=== PATIENT | male | born 1950 | race Caucasian/White ===

== ENCOUNTER 2021-01-26 14:15 | Emergency (ER) | payer MEDICARE, SELFPAY ==
[2021-01-26 14:17] VITALS: BP 144/89; PULSE 108; RESP 20; TEMP 36.3; O2SAT 96; BMI 33.5
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
[2021-01-26] MEDS: Lidocaine 1% /Epi 1:100 (20ml) 20 ML Vial INFILT (14:57)
[2021-01-26] MEDS: Diphth,Pertuss(Acell),Tet Vac 0.5 ML Vial IM (17:01)
[2021-01-26] MEDS: Cephalexin 250 MG Capsule 500 MG PO (17:03)
[2021-01-26 17:17] VITALS: PULSE 89; RESP 17; O2SAT 97
== END 2021-01-26 17:24 | disposition home or self-care (01) ==
PROVIDERS: Emergency Provider Emergency Medicine
DX: S01.01XA Laceration without foreign body of scalp, initial encounter (principal); W22.09XA Striking against other stationary object, initial encounter; I10 Essential (primary) hypertension; Z79.51 Long term (current) use of inhaled steroids; Z79.899 Other long term (current) drug therapy; Z87.891 Personal history of nicotine dependence; Z23 Encounter for immunization
CPT/HCPCS: 12004; 90471; 90715; 99283

== ENCOUNTER → 2024-08-01 | Outpatient (CLI) | payer MEDICARE, SELFPAY | END | disposition home or self-care (01) | LOC: LABSPEC 12:33 | PROVIDERS: Referring Provider Physician Assistant; Visit Provider Physician Assistant | DX: S81.802A Unspecified open wound, left lower leg, initial encounter (principal); X58.XXXA Exposure to other specified factors, initial encounter | CPT/HCPCS: 87070; 87075; 87205 ==

== ENCOUNTER 2024-08-18 14:39 | Emergency (ER) | payer MEDICARE, SELFPAY ==
[2024-08-18] VITALS (7 sets, daily range): BP systolic 150–172; BP diastolic 72–110; PULSE 60–87; RESP 12–18; TEMP 36.4–36.6; O2SAT 93–98; BMI 38.6
--- NOTE | 2024-08-18 14:51 | EKG12_ITS ---
Test Reason : CP Blood Pressure : */* mmHG Vent. Rate : 58 BPM Atrial Rate : 58 BPM P-R Int : 204 ms QRS Dur : 84 ms QT Int : 398 ms P-R-T Axes : 80 -22 2 degrees QTcB Int : 390 ms Sinus bradycardia Nonspecific ST abnormality Abnormal ECG When compared with ECG of 07-Sep-2017 11:20, No significant change was found Confirmed by SERGEI GREENE, LIZBETH ([id number]), editor map HEVER URBINA ([id number]) on 08/22/2024 8:38:25 AM Referred By: Confirmed By: LIZBETH MAI MD
--- NOTE | 2024-08-18 14:54 | EX.ED.DYSGE1 ---
HPI <KIMBERLEY Denise - Last Filed: 08/18/24 17:45> History of Present Illness Chief Complaint: Chest Pain Narrative Narrative: Patient is a 74-year-old male with history of COPD, history hypertension, hyperlipidemia who presents to the emergency department with complaints of chest pressure, shortness of breath. Patient states he was using a log splitter, and then he felt pressure in his upper chest felt like blood was being pushed from his chest into his head. Pay states he also felt short of breath. He does have history of lower leg edema that is been ongoing. He has not seen a residential air sealing technician. Here for evaluation. Patient denies any specific pain that raise to his jaw or upper or lower extremities. PFS <KIMBERLEY Denise - Last Filed: 08/18/24 17:45> [facility] Medical History (Updated 08/18/24 @ 17:45 by KIMBERLEY Denise) Cellulitis of left lower extremity Leg wound, left HTN (hypertension) Home Medications ?Medication ?Instructions ?Recorded ?Last Taken ?Type metoprolol tartrate 25 mg tablet 12.5 mg PO BID 08/06/16 08/12/16 08:30 History simvastatin 20 mg tablet 20 mg PO QPM 08/06/16 Unknown History albuterol sulfate 90 mcg/actuation 2 puff inhalation Q4H PRN PRN 09/07/17 Unknown Rx aerosol inhaler Shortness of breath/wheezing ##1 budesonide-formoterol HFA 160 2 puff inhalation BID 01/26/21 Unknown History mcg-4.5 mcg/actuation aerosol inhaler (Symbicort) lisinopril 20 1 tab PO DAILY 01/26/21 Unknown History mg-hydrochlorothiazide 12.5 mg tablet brimonidine 0.2 %-timolol 0.5 % 1 drp RIGHT EYE BID 08/18/24 Unknown History eye drops latanoprost 0.005 % eye drops 1 drp RIGHT EYE QHS 08/18/24 Unknown History ofloxacin 0.3 % eye drops 1 drp RIGHT EYE 4X/DAY 08/18/24 Unknown History prednisolone acetate 1 % eye 1 drp RIGHT EYE 4X/DAY 08/18/24 Unknown History drops,suspension Allergy/AdvReac Type Severity Reaction Status Date / Time atorvastatin (From Lipitor) AdvReac Pain in Verified 08/18/24 14:43 joints Family History Father Heart disease Surgical History History of total left hip arthroplasty (~2016) History of lumbar fusion Social History Smoking Status: Former smoker ROS <KIMBERLEY Denise - Last Filed: 08/18/24 17:45> ROS ED ROS Narrative Constitutional: Negative for fever, chills, weight loss, weakness Eyes: Negative for vision loss, vision change, double vision ENT: Negative for any sore throat, ear pain, congestion Cardiovascular: Negative for any palpitations. Positive chest pain, tightness Respiratory: Negative for any cough, sputum production, hemoptysis. Positive for dyspnea, dyspnea on exertion, orthopnea Gastrointestinal: Negative for any abdominal pain, nausea, vomiting, diarrhea, constipation, blood in stool, blood in vomit : Negative for any urinary frequency, dysuria, retention, blood in urine Muscle skeletal: Negative for any neck pain, back pain Neurological: Negative for any headache, syncope, dizziness Skin: Negative for any rashes, itching, abrasions, lacerations Psychiatric: Negative for any depression, anxiety, stress, suicidal ideation, homicidal ideation Hematologic: Negative for any excessive bruising, easy bleeding EXAM <KIMBERLEY Denise - Last Filed: 08/18/24 17:45> Physical Exam Narrative Exam Narrative: Vital signs reviewed. HEET: Head normocephalic atraumatic, TMs clear bilaterally. Posterior pharynx is clear, moist mucous membranes. Nares clear bilaterally. Neck: Supple with no lymphadenopathy or tenderness. No signs of meningismus. Cardiac: Regular rate and rhythm no murmurs gallops or rubs, equal peripheral pulses bilaterally. Respiratory: Diminished lung sounds in the bases, left worse than the right. Some expiratory wheeze to the left mid lobe. No chest tenderness. Abdomen: Soft, nontender, nondistended. No abdominal bruit or pulsatile masses. No hepatosplenomegaly Extremities: No peripheral edema, no signs of gross trauma or deformity. Active full range of motion of all extremities. Neuro: Cranial nerves II through XII intact, no focal neurological deficits. Skin: Clean dry and intact with no rash, purpura, petechiae, vesicles or pustules. Backs/flank: No CVA tenderness, no midline spinal tenderness, no deformity. Psych: Normal mood and affect. No SI, HI or acute psychosis. Const Vital Signs: 08/18/24 14:41 08/18/24 14:46 08/18/24 14:54 Temperature 98 F Temperature Source Oral Pulse Rate 60 Respiratory Rate 18 Respiratory Effort Short of Breath Respiratory Pattern Blood Pressure 172/110 H Blood Pressure Mean 130 Pulse Ox 98 93 Oxygen Delivery Method Room Air Room Air 08/18/24 15:08 08/18/24 15:36 08/18/24 15:57 Temperature Temperature Source Pulse Rate 60 67 64 Respiratory Rate 16 16 12 Respiratory Effort Respiratory Pattern Normal Blood Pressure 168/87 H 167/92 H Blood Pressure Mean 114 117 Pulse Ox 98 97 Oxygen Delivery Method Room Air Room Air 08/18/24 17:00 08/18/24 17:45 Temperature 97.5 F L Temperature Source Pulse Rate 87 69 Respiratory Rate 16 15 Respiratory Effort Respiratory Pattern Blood Pressure 162/82 H 150/72 H Blood Pressure Mean 108 98 Pulse Ox 97 95 Oxygen Delivery Method Room Air Positive well nourished, well developed and obese General Appearance ED: well developed Nutritional Appearance: obese <Dr. Tad Escobar, DO - Last Filed: 08/18/24 18:34> Physical Exam Const Vital Signs: 08/18/24 14:41 08/18/24 14:46 08/18/24 14:54 Temperature 98 F Temperature Source Oral Pulse Rate 60 Respiratory Rate 18 Respiratory Effort Short of Breath Respiratory Pattern Blood Pressure 172/110 H Blood Pressure Mean 130 Pulse Ox 98 93 Oxygen Delivery Method Room Air Room Air 08/18/24 15:08 08/18/24 15:36 08/18/24 15:57 Temperature Temperature Source Pulse Rate 60 67 64 Respiratory Rate 16 16 12 Respiratory Effort Respiratory Pattern Normal Blood Pressure 168/87 H 167/92 H Blood Pressure Mean 114 117 Pulse Ox 98 97 Oxygen Delivery Method Room Air Room Air 08/18/24 17:00 08/18/24 17:45 Temperature 97.5 F L Temperature Source Pulse Rate 87 69 Respiratory Rate 16 15 Respiratory Effort Respiratory Pattern Blood Pressure 162/82 H 150/72 H Blood Pressure Mean 108 98 Pulse Ox 97 95 Oxygen Delivery Method Room Air MDM <Mateusz Beckwith NP-C - Last Filed: 08/18/24 17:45> [facility] Narrative Medical decision making narrative: Vital signs reviewed. HEET: Head normocephalic atraumatic, TMs clear bilaterally. Posterior pharynx is clear, moist mucous membranes. Nares clear bilaterally. Neck: Supple with no lymphadenopathy or tenderness. No signs of meningismus. Cardiac: Regular rate and rhythm no murmurs gallops or rubs, equal peripheral pulses bilaterally. Respiratory: Diminished lung sounds to lower lobes, slight expiratory wheeze. No chest tenderness. Abdomen: Soft, nontender, nondistended. No abdominal bruit or pulsatile masses. No hepatosplenomegaly Extremities: +2 pitting edema no signs of gross trauma or deformity. Active full range of motion of all extremities. Neuro: Cranial nerves II through XII intact, no focal neurological deficits. Skin: Clean dry and intact with no rash, purpura, petechiae, vesicles or pustules. Backs/flank: No CVA tenderness, no midline spinal tenderness, no deformity. Psych: Normal mood and affect. No SI, HI or acute psychosis. Lab Data Labs: Laboratory Results - last 24 hr 08/18/24 08/18/24 14:51 17:02 WBC 10.0 RBC 4.92 Hgb 14.8 Hct 44.2 MCV 89.8 MCH 30.1 MCHC 33.5 RDW Std Deviation 41.4 RDW Coeff of Donna 12.5 Plt Count 247 MPV 9.3 Immature Gran % (Auto) 0.700 Neut % (Auto) 71.4 H Lymph % (Auto) 18.2 L [place] % (Auto) 8.1 Eos % (Auto) 1.1 Baso % (Auto) 0.5 Absolute Neuts (auto) 7.1 Absolute Lymphs (auto) 1.81 Nucleated RBC % 0 Sodium 131 L Potassium 3.9 Chloride 99 Carbon Dioxide 27.0 Anion Gap 5 BUN 17 Creatinine 0.72 Estim Creat Clear Calc 96.87 Est GFR (MDRD) Af Amer 136 Est GFR (MDRD) Non-Af 112 BUN/Creatinine Ratio 23.5 H Glucose 95 Calcium 9.0 Troponin I High Sens 16 18 B-Natriuretic Peptide 84.0 Radiography Diagnostic Testing: Clinical Impression(s) from Imaging Studies Chest X-Ray 08/18/24 15:00 IMPRESSION: No radiographic evidence of acute cardiopulmonary disease. Electronically Signed: Guicho Jaime MD at 17:05 EST , EKG Sinus bradycardia: Attestation: I personally reviewed and interpreted this EKG as follows: Comments: Sinus bradycardia, rate of 58 bpm, MT interval 204 ms, QRS duration 94 ms, QRS elevation, no acute infarct no acute STEMI Treatment and Re-Evaluation :: Differential diagnosis includes however is not limited to: ACS, [place] unstable angina, CHF exacerbation, COPD exacerbation unstable angina, PE Patient appears generally well, vital signs are stable, patient is nontoxic-appearing. Slightly hypertensive, patient presents to the emergency department for complaints of upper chest pressure, feeling of blood rushing from his chest to his head. This is worse with movement. Patient is EKG was unremarkable. Patient will receive a full cardiac workup including breathing treatments, two-view chest x-ray. Patient be given 4 baby aspirin. All radiologic examinations were read, reviewed by the emergency department attending. From these reads, a plan of care will be put in place. Patient CBC was unremarkable, patient's chemistry shows normal 131, creatinine within normal limits. Patient's BNP was 84 which is negative. Troponin was negative at 16. When patient walks to the bathroom, he remains about 93%. Currently waiting for second troponin. Second troponin was negative. Patient again feels much better, he is asymptomatic. I did talk to the patient regarding admission to the hospital. He states that he would prefer to have this followed up outpatient. Patient will follow-up with cardiology here. The patient was made aware, that if the pain gets worse, patient is having shortness of breath, the patient needs to return to the emerged department. He is happy the plan of care and stable for discharge. ED attending note: I evaluated the patient in conjunction with the ROLO. I agree with his/her statements and above findings. I have personally performed a face to face assessment of the patient and have reviewed the ROLO Note. I performed a substantive portion of the visit including all aspects of the following. I personally saw the patient performed chart review, physical exam, reviewed labs, imaging (if obtained), and formulated a treatment and management plan. 74-year-old male history of COPD presents with chest pain/chest pressure with sitting up. No fever. No cough. Slight edema noted. Rales noted on exam. Patient did appear slightly volume overloaded. The patient denies recent surgery in the last 4 weeks or immobilization in the last 3 days, denies previous diagnosis of DVT or PE, hemoptysis, unilateral leg swelling or malignancy with treatment the last 6 months or palliative. No estrogen use noted. Lungs with rales but no wheezing. No increased work of breathing, no conversational dyspnea. Noted 1-2+ pitting edema bilateral lower extremities. No calf tenderness. Differential includes COPD exacerbation, CHF, ACS, arrhythmia, anemia, electrolyte disturbance, pneumonia. Chest x-ray was read and reviewed personally by myself showed signs of interstitial edema consistent with possible CHF exacerbation. EKG showed sinus bradycardia, first-degree AV block, MT interval 204, QTc interval 390, left axis deviation, no STEMI, no signs of pericarditis. No signs of right heart strain. Initial troponin negative. Patient ambulated with pulse ox of 93%. Awaiting additional labs, delta troponin At this time will undergo shared decision making as to if the patient feels comfortable with discharge with oral diuretics versus admission for IV diuretics given it appears that his initial history, clinical exam and initial partial lab and imaging evaluation are most consistent with CHF. This note was generated with Xendo dictation software. It may contain incorrect words, spelling, and punctuation that were not noted in review of the chart prior to signing. <Dr. Tad Escobar, DO - Last Filed: 08/18/24 18:34> [facility] Lab Data Labs: Laboratory Results - last 24 hr 08/18/24 08/18/24 14:51 17:02 WBC 10.0 RBC 4.92 Hgb 14.8 Hct 44.2 MCV 89.8 MCH 30.1 MCHC 33.5 RDW Std Deviation 41.4 RDW Coeff of Donna 12.5 Plt Count 247 MPV 9.3 Immature Gran % (Auto) 0.700 Neut % (Auto) 71.4 H Lymph % (Auto) 18.2 L [place] % (Auto) 8.1 Eos % (Auto) 1.1 Baso % (Auto) 0.5 Absolute Neuts (auto) 7.1 Absolute Lymphs (auto) 1.81 Nucleated RBC % 0 Sodium 131 L Potassium 3.9 Chloride 99 Carbon Dioxide 27.0 Anion Gap 5 BUN 17 Creatinine 0.72 Estim Creat Clear Calc 96.87 Est GFR (MDRD) Af Amer 136 Est GFR (MDRD) Non-Af 112 BUN/Creatinine Ratio 23.5 H Glucose 95 Calcium 9.0 Troponin I High Sens 16 18 B-Natriuretic Peptide 84.0 Radiography Diagnostic Testing: Clinical Impression(s) from Imaging Studies Chest X-Ray 08/18/24 15:00 IMPRESSION: No radiographic evidence of acute cardiopulmonary disease. Electronically Signed: Guicho Jaime MD at 17:05 EST , Treatment and Re-Evaluation :: Differential diagnosis includes however is not limited to: ACS, [place] unstable angina, CHF exacerbation, COPD exacerbation unstable angina, PE Patient appears generally well, vital signs are stable, patient is nontoxic-appearing. Slightly hypertensive, patient presents to the emergency department for complaints of upper chest pressure, feeling of blood rushing from his chest to his head. This is worse with movement. Patient is EKG was unremarkable. Patient will receive a full cardiac workup including breathing treatments, two-view chest x-ray. Patient be given 4 baby aspirin. All radiologic examinations were read, reviewed by the emergency department attending. From these reads, a plan of care will be put in place. Patient CBC was unremarkable, patient's chemistry shows normal 131, creatinine within normal limits. Patient's BNP was 84 which is negative. Troponin was negative at 16. When patient walks to the bathroom, he remains about 93%. Currently waiting for second troponin. Second troponin was negative. Patient again feels much better, he is asymptomatic. I did talk to the patient regarding admission to the hospital. He states that he would prefer to have this followed up outpatient. The patient was alert and oriented with capacity to make his own medical decisions. Patient will follow-up with cardiology here. The patient was made aware, that if the pain gets worse, patient is having shortness of breath, the patient needs to return to the emerged department. He is happy the plan of care and stable for discharge. ED attending note: I evaluated the patient in conjunction with the ROLO. I agree with his/her statements and above findings. I have personally performed a face to face assessment of the patient and have reviewed the ROLO Note. I performed a substantive portion of the visit including all aspects of the following. I personally saw the patient performed chart review, physical exam, reviewed labs, imaging (if obtained), and formulated a treatment and management plan. 74-year-old male history of COPD presents with chest pain/chest pressure with sitting up. No fever. No cough. Slight edema noted. Rales noted on exam. Patient did appear slightly volume overloaded. The patient denies recent surgery in the last 4 weeks or immobilization in the last 3 days, denies previous diagnosis of DVT or PE, hemoptysis, unilateral leg swelling or malignancy with treatment the last 6 months or palliative. No estrogen use noted. Lungs with rales but no wheezing. No increased work of breathing, no conversational dyspnea. Noted 1-2+ pitting edema bilateral lower extremities. No calf tenderness. Differential includes COPD exacerbation, CHF, ACS, arrhythmia, anemia, electrolyte disturbance, pneumonia. Chest x-ray was read and reviewed personally by myself showed signs of interstitial edema consistent with possible CHF exacerbation. EKG showed sinus bradycardia, first-degree AV block, MT interval 204, QTc interval 390, left axis deviation, no STEMI, no signs of pericarditis. No signs of right heart strain. Initial troponin negative. Patient ambulated with pulse ox of 93%. Awaiting additional labs, delta troponin. Dispo pending labs. This note was generated with Xendo dictation software. It may contain incorrect words, spelling, and punctuation that were not noted in review of the chart prior to signing. Discharge Plan Triage Chief Complaint: Chest Pain ED Midlevel Provider: Mateusz Beckwith ED Provider: Tad Escobar Dx/Rx/DC Orders Clinical Impression: Chest pressure Instructions: ED Chest Pain, Uncertain Cause Prescriptions: No Action simvastatin 20 mg Tablet 20 mg PO QPM metoprolol tartrate 25 MG tablet 12.5 mg PO BID albuterol sulfate 1 INHALER inhaler 2 puff INHALATION Q4H PRN PRN (Reason: Shortness of breath/wheezing) Qty: 1 0RF lisinopril-hydrochlorothiazide 20-12.5 mg Tablet 1 tab PO DAILY budesonide-formoterol [Symbicort] 160-4.5 mcg/actuation Hfa Aerosol Inhaler 2 puff INHALATION BID latanoprost 0.005 % drops 1 drp RIGHT EYE QHS ofloxacin 0.3 % drops 1 drp RIGHT EYE 4X/DAY prednisolone acetate 1 % drops,suspension 1 drp RIGHT EYE 4X/DAY brimonidine-timolol 0.2-0.5 % drops 1 drp RIGHT EYE BID Primary Care Provider: [facility] Referrals: Edwar Velarde MD [Med Staff - Active Staff] - [facility] [Primary [facility] Provider[facility] - Activity Restrictions/Additional Instructions: You are being discharged because you are going to follow-up outpatient to have a stress test and echocardiogram completed. I have given you a residential air sealing technician follow-up. If you continue to have chest pain or have another episode with diaphoresis, worsening shortness of breath, you need to return back to the emergency department. Print Language: Faroese Disposition Disposition: Home, Self Care Discharge Date/Time: 08/18/24 17:50
[2024-08-18] MEDS: Aspirin 81 MG TAB.CHEW 324 MG PO (14:56)
--- NOTE | 2024-08-18 15:00 | RAD_ITS ---
EXAM: XR CHEST, 2 VIEWS CLINICAL INDICATION: chest pain TECHNIQUE: Frontal and lateral views of the chest. COMPARISON: 09/07/2017 FINDINGS: LUNGS AND PLEURAL SPACES: Unremarkable. No consolidation or edema. No pneumothorax. No effusion. HEART: Unremarkable. Cardiac silhouette not enlarged. MEDIASTINUM: Central airways and mediastinal contour are unremarkable. BONES/JOINTS: Unremarkable. No acute fracture. SOFT TISSUES: Unremarkable. RAD/Chest PA and Lateral IMPRESSION: No radiographic evidence of acute cardiopulmonary disease. Electronically Signed: Guicho Jaime MD at 17:05 EST ,
[2024-08-18 15:08] LABS: Absolute Lymphocyte Count 1.81 X10^3/uL (0.83-4.51); Absolute Neutrophil Count 7.1 X10^3/uL (2.0-7.7); Basophil# 0.05 X10^3/uL; Basophil% 0.5 % (0-1); Eosinophil# 0.11 X10^3/uL; Eosinophils% 1.1 % (0-5); Hematocrit 44.2 % (40-54); Hemoglobin 14.8 g/dL (13.0-16.5); Lymphocyte # 1.81 X10^3/ul (0.83-4.51); Lymphocyte % 18.2 % (19-41); Mean Corp Hgb Conc 33.5 g/dL (32-36); Mean Corpuscular Hgb 30.1 pg (27.0-32.0); Mean Corpuscular Volume 89.8 fL (80-94); Mean Platelet Vol. 9.3 fl (6.2-12.0); Monocyte# 0.81 X10^3/uL; Monocyte% 8.1 % (0-10); NRBC Flagged by Analyzer 0 % (0-5); Neutrophil % 71.4 % (47-70); Platelet Count 247 K/mm3 (150-450); RBC Distribution Width CV 12.5 % (11.6-14.6); RBC Distribution Width SD 41.4 fl (35.1-43.9); Red Blood Count 4.92 M/mm3 (4.6-6.2)
[2024-08-18] MEDS: Albuterol 2.5 MG/3 ML VIAL.NEB. INHALATION (15:08)
[2024-08-18] MEDS: Ipratropium/Albuterol Sulfate 3 ML AMPUL.NEB INHALATION (15:08)
[2024-08-18 15:23] LABS: Anion Gap 5 (5-15); BUN 17 mg/dL (7-18); BUN/Creat Ratio 23.5 RATIO (10-20); Chloride 99 mmol/L (98-107); Creatinine, Serum 0.72 mg/dL (0.70-1.30); EST Glomerular Filtration Rate 112 mL/min (>60); Est Glom Filt Rate - Afr Amer 136 mL/min (>60); Estimated Creatinine Clearance 96.87 ml/min; Glucose 95 mg/dL (74-106); Potassium 3.9 mmol/L (3.5-5.1); Sodium Level 131 mmol/L (136-145); Troponin-I HS (w/2H Reflex) 16 pg/mL (3.0-78.0)
[2024-08-18 16:55] LABS: Reflex Troponin-HS? (from REC) Y
[2024-08-18 17:34] LABS: Troponin-I HS 18 pg/mL (3.0-78.0)
== END 2024-08-18 17:50 | disposition home or self-care (01) ==
PROVIDERS: Nurse Practitioner; Emergency Provider Emergency Medicine; Visit Provider Emergency Medicine
DX: R07.89 Other chest pain (principal); J44.9 Chronic obstructive pulmonary disease, unspecified; E78.5 Hyperlipidemia, unspecified; I10 Essential (primary) hypertension; Z87.891 Personal history of nicotine dependence; R06.02 Shortness of breath
CPT/HCPCS: 71046; 80048; 83880; 84484; 85025; 93005; 94640; 99284; A4216

== ENCOUNTER 2024-08-26 08:57 | Inpatient (IN) | payer MEDICARE, SELFPAY ==
[2024-08-26] VITALS (23 sets, daily range): BP systolic 122–171; BP diastolic 72–115; PULSE 59–101; RESP 13–20; TEMP 36.3–36.9; O2SAT 93–98; BMI 36.5; BMI 35.7
--- NOTE | 2024-08-26 09:58 | ED.VIS.DYS ---
HPI History of Present Illness Chief Complaint: Shortness of Breath Informant: patient Onset/Context/Timing Onset: Days Context: gradual Timing: Continuous Quality: Positive for Dyspnea on exertion Worsened by: Exertion Relieved by: Rest Associated Symptoms cough, white sputum and yellow sputum; Negative for rhinorrhea, post nasal drip, ear pain, fever, sore throat, chills, sweats, clear sputum or green sputum Narrative Narrative: Patient presents with shortness of breath that has been getting worse over the past 2 to 3 days. Patient states his breathing is worse with any exertion. Patient states he can only walk approximately 15 to 20 feet before he has to stop and catch his breath. Patient states his breathing does get better with rest. Patient admits to a cough with some white and yellow sputum. Patient admits to some pressure over his upper chest and into his neck. Patient denies any fevers or chills. Patient denies any nausea or vomiting. Patient denies any diaphoresis. Patient denies any PE risk factors. PE Risk Factors: Negative for Cancer, OCP + Smoking + > 35, Prior DVT or PE, Recent immobilization, Recent surgery or Recent travel [facility] Medical History (Updated 08/26/24 @ 15:[address] Jorden Banegas, DO) Alcohol abuse Former smoker COPD (chronic obstructive pulmonary disease) Congestive heart failure (CHF) Cellulitis of left lower extremity Leg wound, left HTN (hypertension) Home Medications ?Medication ?Instructions ?Recorded ?Last Taken ?Type metoprolol tartrate 25 mg tablet 12.5 mg PO BID 08/06/16 08/12/16 08:30 History simvastatin 20 mg tablet 20 mg PO QPM 08/06/16 Unknown History albuterol sulfate 90 mcg/actuation 2 puff inhalation Q4H PRN PRN 09/07/17 Unknown Rx aerosol inhaler Shortness of breath/wheezing ##1 budesonide-formoterol HFA 160 2 puff inhalation BID 01/26/21 Unknown History mcg-4.5 mcg/actuation aerosol inhaler (Symbicort) lisinopril 20 1 tab PO DAILY 01/26/21 Unknown History mg-hydrochlorothiazide 12.5 mg tablet brimonidine 0.2 %-timolol 0.5 % 1 drp RIGHT EYE BID 08/18/24 Unknown History eye drops latanoprost 0.005 % eye drops 1 drp RIGHT EYE QHS 08/18/24 Unknown History prednisolone acetate 1 % eye 1 drp RIGHT EYE 4X/DAY 08/18/24 Unknown History drops,suspension Allergy/AdvReac Type Severity Reaction Status Date / Time atorvastatin (From Lipitor) AdvReac Pain in Verified 08/26/24 09:13 joints Family History Father Heart disease Surgical History History of total left hip arthroplasty (~2016) History of lumbar fusion Social History Smoking Status: Former smoker ROS ROS ED Constitutional Constitutional ED: Denies chills or fever(s) Eyes Eyes: Denies blurry vision or change in vision ENT ENT ED: Denies rhinorrhea or sore throat Cardiovascular Cardiovascular: Reports chest pain; Denies palpitations Respiratory/Chest Respiratory/Chest: Reports cough and dyspnea Gastrointestinal Gastrointestinal: Denies nausea or vomiting Genitourinary Genitourinary ED: Reports urinary frequency; Denies dysuria or hematuria Musculoskeletal Musculoskeletal: Reports neck pain; Denies back pain Integumentary Denies abscess or rash Neurologic Neurologic: Denies headache(s) or weakness Allergic/Immunologic Allergic/Immunologic ED: Denies mouth swelling or urticaria EXAM Physical Exam Const Vital Signs: 08/26/24 08:58 08/26/24 09:01 08/26/24 09:11 Temperature 98.1 F 98.2 F Temperature Source Temporal Oral Pulse Rate 63 62 Respiratory Rate 18 20 H Respiratory Effort Short of Breath Respiratory Depth Shallow Respiratory Pattern Normal Blood Pressure 164/89 H 153/89 H Blood Pressure Mean 114 110 Pulse Ox 96 96 Oxygen Delivery Method Room Air Room Air Room Air 08/26/24 09:57 08/26/24 10:00 08/26/24 10:01 Temperature 97.6 F L Temperature Source Oral Pulse Rate 61 59 L 59 L Respiratory Rate 17 16 16 Respiratory Effort Respiratory Depth Respiratory Pattern Blood Pressure 122/72 H 122/72 H 122/72 H Blood Pressure Mean 88 88 88 Pulse Ox 94 95 94 Oxygen Delivery Method Room Air Room Air Room Air 08/26/24 11:00 08/26/24 12:00 08/26/24 13:00 Temperature 98.5 F 98.4 F 98.5 F Temperature Source Oral Oral Oral Pulse Rate 66 70 75 Respiratory Rate 16 18 18 Respiratory Effort Respiratory Depth Respiratory Pattern Blood Pressure 132/88 H 139/90 H 159/90 H Blood Pressure Mean 102 106 113 Pulse Ox 96 96 96 Oxygen Delivery Method Room Air Room Air Room Air 08/26/24 14:00 Temperature 98 F Temperature Source Oral Pulse Rate 75 Respiratory Rate 16 Respiratory Effort Respiratory Depth Respiratory Pattern Blood Pressure 171/95 H Blood Pressure Mean 120 Pulse Ox 94 Oxygen Delivery Method Room Air Positive well nourished and well developed General Appearance ED: well developed and NAD HEENT Reports moist mucous membranes Neck supple and no JVD Resp normal respiratory effort Auscultation: diminished lung sounds diffuse Cardio regular rate and regular rhythm GI non-tender and non-distended Palpation: soft Extremity normal to inspection Extremity Narrative: There is trace edema of the lower extremities bilaterally. There is no tenderness. General Extremety ED: Yes edema; Negative for tenderness General Extremity: edema Neuro oriented x3, CN's II-XII intact bilaterally and no sensory deficits noted Alia Coma Scale: document GCS findings Spontaneous Obeys Commands Oriented 15 Sensorium / Orientation: alert Speech: speech normal Motor Exam: strength 5/5 throughout Psych mental status grossly normal MDM MDM MDM Narrative Medical decision making narrative: Differential diagnosis includes cardiac dysrhythmia, cardiac ischemia, pneumonia, pneumothorax, congestive heart failure, electrolyte abnormality, anemia, and anxiety. EKG will be obtained to assess for cardiac dysrhythmia and cardiac ischemia. Chest x-ray will be obtained to assess for congestive heart failure and pneumonia. CBC will be obtained to assess for leukocytosis and anemia. Basic metabolic profile will be obtained to assess for electrolyte abnormality and renal function. BNP will be obtained to assess for congestive heart failure. High-sensitivity troponin will be obtained to assess for cardiac ischemia. 2-hour repeat high-sensitivity troponin will be obtained to assess for ongoing cardiac ischemia. Lab Data Attestation: I reviewed the patient's lab results. Lab results narrative: CBC was reviewed. There is a mild leukocytosis of 14.8. The remainder is within normal limits. Basic metabolic profile was reviewed and was within normal limits. High-sensitivity troponin was reviewed and was normal at 19. BNP was reviewed and was normal at 92. 2-hour repeat high-sensitivity troponin was reviewed and was normal at 19. Urinalysis was reviewed. There is no evidence of urinary tract infection or hematuria. Labs: Laboratory Results - last 24 hr 08/26/24 08/26/24 08/26/24 09:05 09:57 12:22 WBC 14.8 H RBC 4.57 L Hgb 13.8 Hct 41.0 MCV 89.7 MCH 30.2 MCHC 33.7 RDW Std Deviation 41.9 RDW Coeff of Donna 12.8 Plt Count 221 MPV 9.0 Immature Gran % (Auto) 0.500 Neut % (Auto) 86.2 H Lymph % (Auto) 6.2 L [place] % (Auto) 6.4 Eos % (Auto) 0.5 Baso % (Auto) 0.2 Absolute Neuts (auto) 12.8 H Absolute Lymphs (auto) 0.91 Nucleated RBC % 0 Sodium 137 Potassium 3.6 Chloride 102 Carbon Dioxide 30.0 Anion Gap 5 BUN 17 Creatinine 0.65 L Estim Creat Clear Calc 93.98 Est GFR (MDRD) Af Amer 152 Est GFR (MDRD) Non-Af 126 BUN/Creatinine Ratio 26.0 H Glucose 115 H Calcium 9.0 Troponin I High Sens 19 19 B-Natriuretic Peptide 92.0 Urine Color Yellow Urine Clarity Clear Urine pH 6.0 Ur Specific [place] 1.010 Urine Protein Negative Urine Glucose (UA) Normal Urine Ketones Negative Urine Occult Blood Negative Urine Nitrite Negative Urine Bilirubin Negative Urine Urobilinogen Normal Ur Leukocyte Esterase Negative Urine RBC 0 SEEN Urine WBC 0 SEEN Ur Squamous Epith Cells 0 SEEN Urine Bacteria 0 SEEN Urine Mucus 0 SEEN Radiography Chest X-Ray - ED: 2 View, Read by ED Physician, Read by Radiologist and No Acute Disease Diagnostic Testing: Clinical Impression(s) from Imaging Studies Chest X-Ray 08/26/24 10:05 IMPRESSION: No radiographic evidence of acute cardiopulmonary disease. Electronically Signed: Jaxson James MD at 10:41 EST , PA and lateral chest x-ray was obtained. There are 2 views. On my independent interpretation, lung lazcano are clear. There is normal cardiac silhouette. Bony thorax is normal. There is no acute process noted. Radiologist also interpreted the x-ray and agrees. EKG Initial EKG: Attestation: I personally reviewed and interpreted this EKG as follows: Interpretation: Sinus Rhythm and Non-Specific ST Changes Comments: EKG was obtained. On my independent interpretation, it showed a normal sinus rhythm with a rate of 63. SC interval, QRS interval, and QTc intervals were all normal. [place] was normal. There are nonspecific ST-T wave changes. Prior EKG tracings: available for review Prior: Unchanged (08/18/2024) Management Discussion w/another healthcare provider: Hospitalist (Dr. Lopez) Additional Tests and Interventions Additional Tests or Interventions: CT of the chest will be obtained to assess for pulmonary embolism. Treatment and Re-Evaluation :: Patient was given a dose of Tylenol here. Patient was advised of his findings. Patient will be ambulated here in the emergency department pulse oximeter monitor. If the patient is able to maintain oxygen saturation above 90%, I feel patient can be discharged home. However, if his oxygen saturation drops below 90%, I feel the patient should be admitted to the hospital. Patient's oxygen saturation dropped to 86% while ambulating. Patient felt short of breath with this. Because of this, I recommended admission to the hospital. Case was discussed with the hospitalist. She will admit the patient to her service. Patient understood and was agreeable with the plan. All questions were answered. Patient understands and is agreeable with the plan. All questions were answered. Discharge Plan Triage Chief Complaint: Shortness of Breath ED Provider: Jorden Banegas Dx/Rx/DC Orders Clinical Impression: Dyspnea, Hypoxia Prescriptions: No Action simvastatin 20 mg Tablet 20 mg PO QPM metoprolol tartrate 25 MG tablet 12.5 mg PO BID albuterol sulfate 1 INHALER inhaler 2 puff INHALATION Q4H PRN PRN (Reason: Shortness of breath/wheezing) Qty: 1 0RF lisinopril-hydrochlorothiazide 20-12.5 mg Tablet 1 tab PO DAILY budesonide-formoterol [Symbicort] 160-4.5 mcg/actuation Hfa Aerosol Inhaler 2 puff INHALATION BID latanoprost 0.005 % drops 1 drp RIGHT EYE QHS prednisolone acetate 1 % drops,suspension 1 drp RIGHT EYE 4X/DAY brimonidine-timolol 0.2-0.5 % drops 1 drp RIGHT EYE BID [facility]errals: [facility] [Primary Care Provider] - 3-5 Days Print Language: Bhutanese Disposition Disposition: Acute Care Hospital [facility]
--- NOTE | 2024-08-26 10:05 | RAD_ITS ---
INDICATION: Dyspnea EXAMINATION/TECHNIQUE: X-RAY - XR Chest 2 Views COMPARISON: Prior study dated: 08/18/2024 FINDINGS: LINES/DEVICES: None. LUNGS: Mild atelectasis or focal elevation of the left hemidiaphragm. No new infiltrate is seen. No evidence of pleural effusions. MEDIASTINUM AND CARDIOVASCULAR STRUCTURES: Cardiac silhouette not enlarged. Central airways and mediastinal contour are unremarkable. BONES AND SOFT TISSUES: No demonstrated acute osseous changes. RAD/Chest PA and Lateral IMPRESSION: No radiographic evidence of acute cardiopulmonary disease. Electronically Signed: Jaxson James MD at 10:41 EST ,
--- NOTE | 2024-08-26 10:06 | EKG12_ITS ---
Test Reason : SOB/CP Blood Pressure : */* mmHG Vent. Rate : 63 BPM Atrial Rate : 63 BPM P-R Int : 190 ms QRS Dur : 74 ms QT Int : 366 ms P-R-T Axes : 57 -24 11 degrees QTcB Int : 374 ms Normal sinus rhythm with sinus arrhythmia Nonspecific ST abnormality Abnormal ECG Confirmed by SERGEI GREENE, LIZBETH ([id number]), art editor HEVER URBINA ([id number]) on 08/29/2024 6:44:03 AM Referred By: TIP Confirmed By: LIZBETH MAI MD
[2024-08-26 10:16] LABS: Bacteria 0 SEEN /hpf (None Seen); Mucous, Urine 0 SEEN /hpf (<or=2+); Red Blood Cells-Urine 0 SEEN /hpf (0-5); Squamous Epithelial Cells - UA 0 SEEN /hpf (0-5); White Blood Cells 0 SEEN /hpf (0-5)
[2024-08-26 10:18] LABS: Absolute Lymphocyte Count 0.91 X10^3/uL (0.83-4.51); Absolute Neutrophil Count 12.8 X10^3/uL (2.0-7.7); Basophil# 0.03 X10^3/uL; Basophil% 0.2 % (0-1); Eosinophil# 0.07 X10^3/uL; Eosinophils% 0.5 % (0-5); Hemoglobin 13.8 g/dL (13.0-16.5); Lymphocyte # 0.91 X10^3/ul (0.83-4.51); Lymphocyte % 6.2 % (19-41); Mean Corp Hgb Conc 33.7 g/dL (32-36); Mean Corpuscular Hgb 30.2 pg (27.0-32.0); Mean Corpuscular Volume 89.7 fL (80-94); Monocyte# 0.94 X10^3/uL; Monocyte% 6.4 % (0-10); NRBC Flagged by Analyzer 0 % (0-5); Neutrophil # 12.77 X10^3/uL (2.7-7.7); Neutrophil % 86.2 % (47-70); Platelet Count 221 K/mm3 (150-450); RBC Distribution Width CV 12.8 % (11.6-14.6); RBC Distribution Width SD 41.9 fl (35.1-43.9); Red Blood Count 4.57 M/mm3 (4.6-6.2); White Blood Count 14.8 K/mm3 (4.4-11.0)
[2024-08-26 10:19] LABS: Color, Urine Yellow (Yellow); Glucose, Dipstick Normal (Normal); Ketone-Dipstick Negative (Negative); Leukocyte Esterase-Dipstick Negative /ul (Negative); Nitrite-Dipstick Negative (Negative); Occult Blood-Urine Negative /ul (Negative); Protein-Dipstick Negative (Negative); Urine Bilirubin Dipstick Negative (Negative); Urine Clarity Clear (Clear); Urine Urobilinogen Normal (Normal)
[2024-08-26 10:36] LABS: Anion Gap 5 (5-15); BUN 17 mg/dL (7-18); Chloride 102 mmol/L (98-107); Creatinine, Serum 0.65 mg/dL (0.70-1.30); EST Glomerular Filtration Rate 126 mL/min (>60); Est Glom Filt Rate - Afr Amer 152 mL/min (>60); Estimated Creatinine Clearance 93.98 ml/min; Glucose 115 mg/dL (74-106); Potassium 3.6 mmol/L (3.5-5.1); Sodium Level 137 mmol/L (136-145); Troponin-I HS (w/2H Reflex) 19 pg/mL (3.0-78.0)
[2024-08-26 12:13] LABS: Reflex Troponin-HS? (from REC) Y
[2024-08-26] MEDS: Acetaminophen 500 MG Tablet 1000 MG PO (12:21)
[2024-08-26 12:53] LABS: Troponin-I HS 19 pg/mL (3.0-78.0)
--- NOTE | 2024-08-26 13:36 | CT_ITS ---
STUDY: CTA CHEST REASON FOR EXAM: Male, 74 years old. Dyspnea RADIATION DOSAGE (If Supplied By Facility): CTDIvol = ( 11.57 ) mGy, DLP = ( 464.83 ) mGycm TECHNIQUE: The examination was performed with the intravenous administration of IV 100mL Isovue-370. Post-processing of the angiographic images was performed, with multiplanar reformation and 3D reconstruction. Individualized dose optimization techniques were used for this CT. COMPARISON: None. FINDINGS: Normal enhancement of the main pulmonary artery and right and left pulmonary arteries. Normal enhancement of the bilateral peripheral pulmonary arteries. There is no demonstrated pulmonary embolism. There is atherosclerotic calcification of the aortic arch with tortuosity. There is no demonstrated aortic dissection. There are calcifications of the coronary arteries. There are calcified mediastinal lymph nodes. There are calcified left hilar lymph nodes. Normal visualized trachea and bronchi. The lungs are well expanded. There are bilateral groundglass opacities in the right middle and lower lobes. Normal pleura. Normal chest wall structures. There are degenerative changes of thoracic spine. There are multiple benign calcified liver and spleen granulomata. CT/CTA Chest W/WO Contrast IMPRESSION: CTA chest examination, without a demonstrated pulmonary embolism or arterial dissection. Mild right lower lung infiltrate. Electronically Signed: Sebastián Montejo MD at 15:23 [facility] ,
--- NOTE | 2024-08-26 14:44 | HP.PCM.HOS_ITS ---
HPI - General General Date of Admission: 08/26/24 Date of Service: 08/26/24 Chief Complaint: SOB, cough HPI Narrative SABRA PHAN, is a 74-year-old male with history of COPD and hypertension presented to [facility] ED 08/26/2024 with worsening shortness of breath on exertion and he is only able to walk 15 to 20 feet before he has to stop to catch his breath. Does have some cough with white-yellow sputum and gets occasional pressure over upper chest and neck. In the ED lab workup fairly unremarkable however when patient was ambulated his oxygen saturation dropped to 86%. CTA was ordered but given he was hypoxic and required admission either way hospitalist contacted for admission. At the time of evaluation CTA films reviewed but pending formal report. Patient evaluated with family member at bedside, for the past 3 days he has had increasing shortness of breath especially on exertion with some wheezing and cough with yellow and white sputum. Has had to use his rescue inhaler with increasing frequency on it does help but his shortness of breath has continued to worsen. Does report he also uses his Symbicort which is more helpful than his rescue inhaler. Patient does also have this upper chest and neck pressure, denies any problems swallowing, noted abdominal pain or nausea or vomiting. Does have a slight headache but he attributes this to the lytes. Also has a wound on his left iqbal from before Thanksgiving without purulent or significant drainage. Has a little bit of bilateral lower extremity swelling which is not necessarily new but has been persistent. No other new or acute complaints [facility] Medical History Cellulitis of left lower extremity Leg wound, left HTN (hypertension) Home Medications ?Medication ?Instructions ?Recorded ?Last Taken ?Type metoprolol tartrate 25 mg tablet 12.5 mg PO BID 08/06/16 08/12/16 08:30 History simvastatin 20 mg tablet 20 mg PO QPM 08/06/16 Unknown History albuterol sulfate 90 mcg/actuation 2 puff inhalation Q4H PRN PRN 09/07/17 Unknown Rx aerosol inhaler Shortness of breath/wheezing ##1 budesonide-formoterol HFA 160 2 puff inhalation BID 01/26/21 Unknown History mcg-4.5 mcg/actuation aerosol inhaler (Symbicort) lisinopril 20 1 tab PO DAILY 01/26/21 Unknown History mg-hydrochlorothiazide 12.5 mg tablet brimonidine 0.2 %-timolol 0.5 % 1 drp RIGHT EYE BID 08/18/24 Unknown History eye drops latanoprost 0.005 % eye drops 1 drp RIGHT EYE QHS 08/18/24 Unknown History ofloxacin 0.3 % eye drops 1 drp RIGHT EYE 4X/DAY 08/18/24 Unknown History prednisolone acetate 1 % eye 1 drp RIGHT EYE 4X/DAY 08/18/24 Unknown History drops,suspension Allergy/AdvReac Type Severity Reaction Status Date / Time atorvastatin (From Lipitor) AdvReac Pain in Verified 08/26/24 09:13 joints Family History Father Heart disease Surgical History History of total left hip arthroplasty (~2015) History of lumbar fusion Social History Smoking Status: Former smoker ROS ROS Narrative General: Denies fever/chills HENT: Slight headache, denies stuffy nose, denies sore throat EYES: Some chronic poor vision Resp: Increased shortness of breath and cough with yellow and white sputum Cardiac: Has some upper chest pain and neck GI: Denies abdominal pain, denies changes in bowel, denies nausea/vomiting : Denies changes in urination Extremity: Some lower extremity swelling bilaterally MSK: Denies weakness Neuro: Denies any numbness/tingling Heme: Denies any bleeding or bruising Skin: Left iqbal wound, new and without purulent drainage Psychiatric: No complaints voiced Vital Signs Vital Signs Vital Signs: 08/26/24 08:58 08/26/24 09:01 08/26/24 09:11 Temperature 98.1 F 98.2 F Temperature Source Temporal Oral Pulse Rate 63 62 Respiratory Rate 18 20 H Respiratory Effort Short of Breath Respiratory Depth Shallow Respiratory Pattern Normal Blood Pressure 164/89 H 153/89 H Blood Pressure Mean 114 110 Pulse Ox 96 96 Oxygen Delivery Method Room Air Room Air Room Air 08/26/24 09:57 08/26/24 10:00 08/26/24 10:01 Temperature 97.6 F L Temperature Source Oral Pulse Rate 61 59 L 59 L Respiratory Rate 17 16 16 Respiratory Effort Respiratory Depth Respiratory Pattern Blood Pressure 122/72 H 122/72 H 122/72 H Blood Pressure Mean 88 88 88 Pulse Ox 94 95 94 Oxygen Delivery Method Room Air Room Air Room Air 08/26/24 11:00 08/26/24 12:00 08/26/24 13:00 Temperature 98.5 F 98.4 F 98.5 F Temperature Source Oral Oral Oral Pulse Rate 66 70 75 Respiratory Rate 16 18 18 Respiratory Effort Respiratory Depth Respiratory Pattern Blood Pressure 132/88 H 139/90 H 159/90 H Blood Pressure Mean 102 106 113 Pulse Ox 96 96 96 Oxygen Delivery Method Room Air Room Air Room Air 08/26/24 14:00 Temperature 98 F Temperature Source Oral Pulse Rate 75 Respiratory Rate 16 Respiratory Effort Respiratory Depth Respiratory Pattern Blood Pressure 171/95 H Blood Pressure Mean 120 Pulse Ox 94 Oxygen Delivery Method Room Air Weight Weight: 108.862 kg Body Mass Index (BMI) 36.5 Physical Exam Narrative General: Alert, oriented, no apparent distress HEENT: Atraumatic, normocephalic Eyes: Anicteric, does have slight discordant gaze, has had 4 surgeries for detached retina Neck: Supple Respiratory: Diminished airflow, did have audible wheeze initially in the room Cardiovascular: Regular rate GI: Firm Extremities: 1+ bilateral lower extremity edema Musculoskeletal: Moving all extremities Neuro: No overt focal neurological deficits Skin: Patient with skin lesion on left anterior iqbal from scrape, not overtly cellulitic and without any purulent drainage Psych: Cooperative Results Lab / Micro Data 08/26/24 09:57 08/26/24 09:57 Labs: Laboratory Results - last 24 hr 08/26/24 09:05: Urine Color Yellow, Urine Clarity Clear, Urine pH 6.0, Ur Specific [place] 1.010, Urine Protein Negative, Urine Glucose (UA) Normal, Urine Ketones Negative, Urine Occult Blood Negative, Urine Nitrite Negative, Urine Bilirubin Negative, Urine Urobilinogen Normal, Ur Leukocyte Esterase Negative, Urine RBC 0 SEEN, Urine WBC 0 SEEN, Ur Squamous Epith Cells 0 SEEN, Urine Bacteria 0 SEEN, Urine Mucus 0 SEEN 08/26/24 09:57: WBC 14.8 H, RBC 4.57 L, Hgb 13.8, Hct 41.0, MCV 89.7, MCH 30.2, MCHC 33.7, RDW Std Deviation 41.9, RDW Coeff of Donna 12.8, Plt Count 221, MPV 9.0, Immature Gran % (Auto) 0.500, Neut % (Auto) 86.2 H, Lymph % (Auto) 6.2 L, [place] % (Auto) 6.4, Eos % (Auto) 0.5, Baso % (Auto) 0.2, Absolute Neuts (auto) 12.8 H, Absolute Lymphs (auto) 0.91, Nucleated RBC % 0, Sodium 137, Potassium 3.6, Chloride 102, Carbon Dioxide 30.0, Anion Gap 5, BUN 17, Creatinine 0.65 L, Estim Creat Clear Calc 93.98, Est GFR (MDRD) Af Amer 152, Est GFR (MDRD) Non-Af 126, BUN/Creatinine Ratio 26.0 H, Glucose 115 H, Calcium 9.0, Troponin I High Sens 19, B-Natriuretic Peptide 92.0 08/26/24 12:22: Troponin I High Sens 19 Imaging Radiology Impression Chest X-Ray 08/26/24 10:05 IMPRESSION: No radiographic evidence of acute cardiopulmonary disease. Electronically Signed: Jaxson James MD at 10:41 EST , Assessment & Plan Assessment/Plan (1) Dyspnea: PLAN: Plan #Hypoxia on exertion, suspect secondary to COPD exacerbation -Chest x-ray within normal limits -CTA still pending to rule out PE however patient has increased shortness of breath on exertion with cough productive for yellow and white sputum and has been using his rescue inhaler more frequently and does get some relief with this then has been having wheezing episodes as well -Admit to floor, continuous O2 monitoring COVID ordered, obtain respiratory panel, sputum culture if able -Will likely need ambulatory pulse ox prior to discharge -IV methylprednisone -Scheduled DuoNebs -Albuterol prn -Antibiotics: Azithromycin -Incentive spirometer -Mucinex #Hypertension -Continue home medications once med rec completed #LLE abrasion -Present since before -Had been treated earlier this month for cellulitis -Does not presently appear to be overtly cellulitic and has no active purulent drainage -If any increasing erythema can consider oral antibiotics for cellulitis -Local wound care #Alcohol use -Reportedly drinks 2-3 beers roughly every day -Beers are 12 ounces and 4 to 5% -Denies any history or current withdrawal symptoms -Low suspicion for alcohol withdrawal but will place on CIWA without coverage at this time so this can be monitored more closely -Can likely DC CIWA before discharge if patient remains completely asymptomatic #?dilated esophagus -Patient with some upper chest and neck pressure -Review of CTA looks like there may be some esophageal dilation which would likely explain the symptoms -Awaiting formal read-> may need formal GI consult for inpatient versus outpatient evaluation/management pending read #DVT ppx: Lovenox subcu Ashely Lopez MD Time spent in the patient's overall evaluation, decision-making process, review of diagnostic data, adjustment of management, discussion with other providers, nursing and ancillary staff involved in patient's care documentation, 57 Minutes Charges/Coding Visit Charges Inpatient E&M: 15401 Init Hosp L2
[2024-08-26] MEDS: Albuterol 2.5 MG/3 ML VIAL.NEB. INHALATION (16:16)
[2024-08-26] MEDS: Azithromycin 250 MG Tablet 500 MG PO (17:36)
--- NOTE | 2024-08-26 17:49 | PCM.HOSP.N ---
Hospitalist Note CT with mild right lower lobe infiltrate, will add Rocephin. No comment on the dilated esophagus however given that is visible on the CT and there is pain in the upper chest to neck will consult GI
--- NOTE | 2024-08-26 18:40 | CON.PCM.GI_ITS ---
HPI Consult Data Date of Consult: 08/26/24 HPI Narrative Reason for Consultation: chest pain HPI Narrative: SABRA PHAN, is a 74 M who presented to the ED with shortness of breath that has been getting worse over the past 2 to 3 days. Patient states his breathing is worse with any exertion. Patient states he can only walk approximately 15 to 20 feet before he has to stop and catch his breath. Patient states his breathing does get better with rest. Patient admits to a cough with some white and yellow sputum. Patient admits to some pressure over his upper chest and into his neck. Patient denies any fevers or chills. Patient denies any nausea or vomiting. Patient denies any diaphoresis. Patient denies any PE risk factors. CTA chest examination: without a demonstrated pulmonary embolism or arterial dissection. + Mild right lower lung infiltrate. Patient denies any dysphagia or odynophagia with liquids or solids. His weight has been stable. He denies any history of gastroesophageal reflux disease. He does not take any blood thinners. He has no previous history eosinophilic esophagitis. FORMERLY [facility] Medical History Alcohol abuse Former smoker COPD (chronic obstructive pulmonary disease) Congestive heart failure (CHF) Cellulitis of left lower extremity Leg wound, left HTN (hypertension) Home Medications ?Medication ?Instructions ?Recorded ?Last Taken ?Type metoprolol tartrate 25 mg tablet 12.5 mg PO BID 08/06/16 08/12/16 08:30 History simvastatin 20 mg tablet 20 mg PO QPM 08/06/16 Unknown History albuterol sulfate 90 mcg/actuation 2 puff inhalation Q4H PRN PRN 09/07/17 Unknown Rx aerosol inhaler Shortness of breath/wheezing ##1 budesonide-formoterol HFA 160 2 puff inhalation BID 01/26/21 Unknown History mcg-4.5 mcg/actuation aerosol inhaler (Symbicort) lisinopril 20 1 tab PO DAILY 01/26/21 Unknown History mg-hydrochlorothiazide 12.5 mg tablet brimonidine 0.2 %-timolol 0.5 % 1 drp RIGHT EYE BID 08/18/24 Unknown History eye drops latanoprost 0.005 % eye drops 1 drp RIGHT EYE QHS 08/18/24 Unknown History prednisolone acetate 1 % eye 1 drp RIGHT EYE 4X/DAY 08/18/24 Unknown History drops,suspension Allergy/AdvReac Type Severity Reaction Status Date / Time atorvastatin (From Lipitor) AdvReac Pain in Verified 08/26/24 09:13 joints Family History Father Heart disease Surgical History History of total left hip arthroplasty (~2016) History of lumbar fusion Social History Smoking Status: Former smoker ROS Constitutional Constitutional: Denies fatigue, fever(s), poor appetite, weight gain or weight loss Gastrointestinal Gastrointestinal: Denies belching, bloating, change in bowel habits, change in stool character, chewing difficulty, coffee ground emesis, constipation, cramping, diarrhea, dyspepsia, dysphagia, early satiety, excessive flatus, fecal incontinence, heartburn, hematemesis, hematochezia, hemorrhoids, loose stools, melena, nausea, odynophagia, rectal bleeding, tenesmus, vomiting or weight changes Physical Exam Const alert, oriented x3, no apparent distress and healthy appearing General Appearance: cooperative GI normal to inspection, nondistended, normoactive bowel sounds, soft to palpation, non-tender and non-distended Percussion: normal to percussion Rectal Exam: deferred Lab / Micro Data 08/26/24 09:57 08/26/24 09:57 Labs: Laboratory Results - last 24 hr 08/26/24 09:05: Urine Color Yellow, Urine Clarity Clear, Urine pH 6.0, Ur Specific [place] 1.010, Urine Protein Negative, Urine Glucose (UA) Normal, Urine Ketones Negative, Urine Occult Blood Negative, Urine Nitrite Negative, Urine Bilirubin Negative, Urine Urobilinogen Normal, Ur Leukocyte Esterase Negative, Urine RBC 0 SEEN, Urine WBC 0 SEEN, Ur Squamous Epith Cells 0 SEEN, Urine Bacteria 0 SEEN, Urine Mucus 0 SEEN 08/26/24 09:57: WBC 14.8 H, RBC 4.57 L, Hgb 13.8, Hct 41.0, MCV 89.7, MCH 30.2, MCHC 33.7, RDW Std Deviation 41.9, RDW Coeff of [place] 12.8, Plt Count 221, MPV 9.0, Immature Gran % (Auto) 0.500, Neut % (Auto) 86.2 H, Lymph % (Auto) 6.2 L, [place] % (Auto) 6.4, Eos % (Auto) 0.5, Baso % (Auto) 0.2, Absolute Neuts (auto) 12.8 H, Absolute Lymphs (auto) 0.91, Nucleated RBC % 0, Sodium 137, Potassium 3.6, Chloride 102, Carbon Dioxide 30.0, Anion Gap 5, BUN 17, Creatinine 0.65 L, Estim Creat Clear Calc 93.98, Est GFR (MDRD) Af Amer 152, Est GFR (MDRD) Non-Af 126, BUN/Creatinine Ratio 26.0 H, Glucose 115 H, Calcium 9.0, Troponin I High Sens 19, B-Natriuretic Peptide 92.0 08/26/24 12:22: Troponin I High Sens 19 Micro: Microbiology 08/26/24 16:08 Mucosa - Nasopharyngeal SARS-CoV-2, Influenza & RSV (PCR) - Final Imaging Radiology Impression Chest X-Ray 08/26/24 10:05 IMPRESSION: No radiographic evidence of acute cardiopulmonary disease. Electronically Signed: Jaxson James MD at 10:41 EST , Chest CTA 08/26/24 13:36 IMPRESSION: CTA chest examination, without a demonstrated pulmonary embolism or arterial dissection. Mild right lower lung infiltrate. Electronically Signed: Sebastián Montejo MD at 15:23 EST , Assessment & Plan Assessment/Plan (1) Chest pain: (2) Abnormal CT scan: (3) Dyspnea: PLAN: Plan 65-year-old with COPD exacerbation. There is no signs or symptoms of pulmonary malaise him. I was consulted for possible enlarged esophagus. I do not see grossly large esophagus which would make me think of possible esophageal stricture secondary to achalasia, pseudo achalasia, eosinophilic esophagitis, erosive esophagitis or pill induced esophagitis. He is not having any trouble swallowing at this time. I do not think his symptoms are from his upper GI tract. It sounds more positional and respiratory to me and regarding his symptoms. Charges/Coding Visit Charges Inpatient E&M: 46449 Init Hosp L3
[2024-08-26] MEDS: Ceftriaxone 2 GM in 0.9% Normal Saline (50mL MB+) 50 ML IV (18:52)
[2024-08-26] MEDS: Ipratropium/Albuterol Sulfate 3 ML AMPUL.NEB INHALATION ×2 (19:32→23:17)
[2024-08-26] MEDS: BRIMONIDINE 0.2% 5ML BOTTLE 1 DRP RIGHT EYE (19:59)
[2024-08-26] MEDS: prednisoLONE eye drops (5 mL) 1 DROP OPTH.BTL 1 DRP RIGHT EYE (19:59)
[2024-08-26] MEDS: Timolol 0.5% 5ML OPTH.BTL 1 DRP RIGHT EYE (20:02)
[2024-08-26] MEDS: Latanoprost 0.005% 1 Bottle 1 DRP RIGHT EYE (20:03)
[2024-08-26] MEDS: Metoprolol Tartrate 25 MG Tablet 12.5 MG PO (20:10)
[2024-08-26] MEDS: guaiFENesin 1,200 MG Tablet 1200 MG PO (20:11)
[2024-08-26] MEDS: Simvastatin 20 MG Tablet PO (20:11)
[2024-08-27] VITALS (10 sets, daily range): BP systolic 111–153; BP diastolic 69–99; PULSE 85–112; RESP 16–20; TEMP 36.4–36.9; O2SAT 92–96; BMI 35.9
[2024-08-27] MEDS: 0.9% Saline Lock 10 ML Syringe IV ×2 (06:20→21:46)
[2024-08-27 06:50] LABS: Absolute Lymphocyte Count 0.83 X10^3/uL (0.83-4.51); Absolute Neutrophil Count 16.4 X10^3/uL (2.0-7.7); Basophil# 0.03 X10^3/uL; Basophil% 0.2 % (0-1); Hematocrit 42.7 % (40-54); Hemoglobin 13.9 g/dL (13.0-16.5); Lymphocyte # 0.83 X10^3/ul (0.83-4.51); Lymphocyte % 4.5 % (19-41); Mean Corp Hgb Conc 32.6 g/dL (32-36); Mean Corpuscular Hgb 29.6 pg (27.0-32.0); Monocyte# 0.86 X10^3/uL; Monocyte% 4.7 % (0-10); NRBC Flagged by Analyzer 0 % (0-5); Neutrophil # 16.44 X10^3/uL (2.7-7.7); Neutrophil % 89.8 % (47-70); Platelet Count 225 K/mm3 (150-450); RBC Distribution Width SD 42.3 fl (35.1-43.9); Red Blood Count 4.69 M/mm3 (4.6-6.2); White Blood Count 18.3 K/mm3 (4.4-11.0)
[2024-08-27] MEDS: Ipratropium/Albuterol Sulfate 3 ML AMPUL.NEB INHALATION ×4 (06:52→22:39)
[2024-08-27 07:11] LABS: Anion Gap 3 (5-15); BUN 14 mg/dL (7-18); BUN/Creat Ratio 19.8 RATIO (10-20); Calcium,Total 9.3 mg/dL (8.5-10.1); Chloride 102 mmol/L (98-107); Creatinine, Serum 0.71 mg/dL (0.70-1.30); EST Glomerular Filtration Rate 115 mL/min (>60); Est Glom Filt Rate - Afr Amer 139 mL/min (>60); Glucose 132 mg/dL (74-106); Potassium 3.7 mmol/L (3.5-5.1); Sodium Level 136 mmol/L (136-145)
--- NOTE | 2024-08-27 08:17 | PCM.PN.HOSP ---
Reason for Visit Reason for Visit: Diagnoses Dyspnea, unspecified (08/26/24) Chest pain, unspecified (08/26/24) Abnormal findings on diagnostic imaging of other specified body structures (08/26/24) Objective Data Objective Data Vital Signs: Vital Signs Temp Pulse Resp BP Pulse Ox O2 Del Method 97.5 F L 85 18 111/69 96 Room Air 08/27/24 03:20 08/27/24 03:20 08/27/24 03:20 08/27/24 03:20 08/27/24 03:20 08/27/24 03:20 Oxygen Delivery Method Room Air Weight: 243 lb 6.245 oz Body Mass Index (BMI) 35.9 Intake & Output: Intake and Output for Last 24 Hours 08/25/24 08/26/24 08/27/24 23:59 23:59 23:59 Intake Total 290 / 290 120 / 120 Balance 290 / 290 120 / 120 Lab / Micro Data 08/27/24 05:37 08/27/24 05:37 Labs: Laboratory Results - last 24 hr 08/26/24 09:05: Urine Color Yellow, Urine Clarity Clear, Urine pH 6.0, Ur Specific [place] 1.010, Urine Protein Negative, Urine Glucose (UA) Normal, Urine Ketones Negative, Urine Occult Blood Negative, Urine Nitrite Negative, Urine Bilirubin Negative, Urine Urobilinogen Normal, Ur Leukocyte Esterase Negative, Urine RBC 0 SEEN, Urine WBC 0 SEEN, Ur Squamous Epith Cells 0 SEEN, Urine Bacteria 0 SEEN, Urine Mucus 0 SEEN 08/26/24 09:57: WBC 14.8 H, RBC 4.57 L, Hgb 13.8, Hct 41.0, MCV 89.7, MCH 30.2, MCHC 33.7, RDW Std Deviation 41.9, RDW Coeff of [place] 12.8, Plt Count 221, MPV 9.0, Immature Gran % (Auto) 0.500, Neut % (Auto) 86.2 H, Lymph % (Auto) 6.2 L, [place] % (Auto) 6.4, Eos % (Auto) 0.5, Baso % (Auto) 0.2, Absolute Neuts (auto) 12.8 H, Absolute Lymphs (auto) 0.91, Nucleated RBC % 0, Sodium 137, Potassium 3.6, Chloride 102, Carbon Dioxide 30.0, Anion Gap 5, BUN 17, Creatinine 0.65 L, Estim Creat Clear Calc 93.98, Est GFR (MDRD) Af Amer 152, Est GFR (MDRD) Non-Af 126, BUN/Creatinine Ratio 26.0 H, Glucose 115 H, Calcium 9.0, Troponin I High Sens 19, B-Natriuretic Peptide 92.0 08/26/24 12:22: Troponin I High Sens 19 08/27/24 05:37: WBC 18.3 H, RBC 4.69, Hgb 13.9, Hct 42.7, MCV 91.0, MCH 29.6, MCHC 32.6, RDW Std Deviation 42.3, RDW Coeff of [place] 13.0, Plt Count 225, MPV 10.0, Immature Gran % (Auto) 0.800, Neut % (Auto) 89.8 H, Lymph % (Auto) 4.5 L, [place] % (Auto) 4.7, Eos % (Auto) 0.0, Baso % (Auto) 0.2, Absolute Neuts (auto) 16.4 H, Absolute Lymphs (auto) 0.83, Nucleated RBC % 0, Sodium 136, Potassium 3.7, Chloride 102, Carbon Dioxide 31.0, Anion Gap 3 L, BUN 14, Creatinine 0.71, Estim Creat Clear Calc 96.20, Est GFR (MDRD) Af Amer 139, Est GFR (MDRD) Non-Af 115, BUN/Creatinine Ratio 19.8, Glucose 132 H, Calcium 9.3 Micro: Microbiology 08/26/24 16:08 Mucosa - Nasopharyngeal Respiratory Panel (PCR) - Final 08/26/24 18:20 Urine, Clean Catch Legionella Antigen - Final 08/26/24 18:20 Urine, Clean Catch Streptococcus pneumoniae Antigen (M - Final 08/26/24 16:08 Mucosa - Nasopharyngeal SARS-CoV-2, Influenza & RSV (PCR) - Final Radiography Diagnostic Testing: Radiology Impression Chest X-Ray 08/26/24 10:05 IMPRESSION: No radiographic evidence of acute cardiopulmonary disease. Electronically Signed: Jaxson James MD at 10:41 EST , Chest CTA 08/26/24 13:36 IMPRESSION: CTA chest examination, without a demonstrated pulmonary embolism or arterial dissection. Mild right lower lung infiltrate. Electronically Signed: Sebastián Montejo MD at 15:23 EST , Assessment & Plan Assessment/Plan (1) Dyspnea: PLAN: Plan 74-year-old male was admitted with progressive worsening of shortness of breath , for 2 to 3 days more with exertion. Patient has to stop after 15-20 feeds in order to catch breath. Cough with yellowish and clear sputum. Complain of pressure over upper chest and neck. No fever or chill. #Hypoxia on exertion, suspect secondary to COPD exacerbation -Chest x-ray within normal limits -CTA still pending to rule out PE however patient has increased shortness of breath on exertion with cough productive for yellow and white sputum and has been using his rescue inhaler more frequently and does get some relief with this then has been having wheezing episodes as well -Admit to floor, continuous O2 monitoring COVID ordered, obtain respiratory panel, sputum culture if able -Will likely need ambulatory pulse ox prior to discharge -IV methylprednisone -Scheduled DuoNebs -Albuterol prn -Antibiotics: Azithromycin -Incentive spirometer -Mucinex CT images were individually reviewed. PE ruled out. Mild infiltrate right lung base probably atelectasis. Patient does not have fever or hypoxic and is on azithromycin. I do not think patient has pneumonia but will follow. #Hypertension -Continue home medications once med rec completed #LLE abrasion -Present since before -Had been treated earlier this month for cellulitis -Does not presently appear to be overtly cellulitic and has no active purulent drainage -If any increasing erythema can consider oral antibiotics for cellulitis -Local wound care #Alcohol use -Reportedly drinks 2-3 beers roughly every day -Beers are 12 ounces and 4 to 5% -Denies any history or current withdrawal symptoms -Low suspicion for alcohol withdrawal but will place on CIWA without coverage at this time so this can be monitored more closely -Can likely DC CIWA before discharge if patient remains completely asymptomatic #?dilated esophagus -Patient with some upper chest and neck pressure -Review of CTA looks like there may be some esophageal dilation which would likely explain the symptoms -Awaiting formal read-> may need formal GI consult for inpatient versus outpatient evaluation/management pending read #DVT ppx: Lovenox subcu Microbiology Past 72 Hours 08/26/24 16:08 Mucosa - Nasopharyngeal Respiratory Panel (PCR) - Final 08/26/24 18:20 Urine, Clean Catch Legionella Antigen - Final 08/26/24 18:20 Urine, Clean Catch Streptococcus pneumoniae Antigen (M - Final 08/26/24 16:08 Mucosa - Nasopharyngeal SARS-CoV-2, Influenza & RSV (PCR) - Final Laboratory Results 08/26/24 09:05: Urine Color Yellow, Urine Clarity Clear, Urine pH 6.0, Ur Specific [place] 1.010, Urine Protein Negative, Urine Glucose (UA) Normal, Urine Ketones Negative, Urine Occult Blood Negative, Urine Nitrite Negative, Urine Bilirubin Negative, Urine Urobilinogen Normal, Ur Leukocyte Esterase Negative, Urine RBC 0 SEEN, Urine WBC 0 SEEN, Ur Squamous Epith Cells 0 SEEN, Urine Bacteria 0 SEEN, Urine Mucus 0 SEEN 08/26/24 09:57: WBC 14.8 H, RBC 4.57 L, Hgb 13.8, Hct 41.0, MCV 89.7, MCH 30.2, MCHC 33.7, RDW Std Deviation 41.9, RDW Coeff of [place] 12.8, Plt Count 221, MPV 9.0, Immature Gran % (Auto) 0.500, Neut % (Auto) 86.2 H, Lymph % (Auto) 6.2 L, [place] % (Auto) 6.4, Eos % (Auto) 0.5, Baso % (Auto) 0.2, Absolute Neuts (auto) 12.8 H, Absolute Lymphs (auto) 0.91, Nucleated RBC % 0, Sodium 137, Potassium 3.6, Chloride 102, Carbon Dioxide 30.0, Anion Gap 5, BUN 17, Creatinine 0.65 L, Estim Creat Clear Calc 93.98, Est GFR (MDRD) Af Amer 152, Est GFR (MDRD) Non-Af 126, BUN/Creatinine Ratio 26.0 H, Glucose 115 H, Calcium 9.0, Troponin I High Sens 19, B-Natriuretic Peptide 92.0 08/26/24 12:22: Troponin I High Sens 19 08/27/24 05:37: WBC 18.3 H, RBC 4.69, Hgb 13.9, Hct 42.7, MCV 91.0, MCH 29.6, MCHC 32.6, RDW Std Deviation 42.3, RDW Coeff of [place] 13.0, Plt Count 225, MPV 10.0, Immature Gran % (Auto) 0.800, Neut % (Auto) 89.8 H, Lymph % (Auto) 4.5 L, [place] % (Auto) 4.7, Eos % (Auto) 0.0, Baso % (Auto) 0.2, Absolute Neuts (auto) 16.4 H, Absolute Lymphs (auto) 0.83, Nucleated RBC % 0, Sodium 136, Potassium 3.7, Chloride 102, Carbon Dioxide 31.0, Anion Gap 3 L, BUN 14, Creatinine 0.71, Estim Creat Clear Calc 96.20, Est GFR (MDRD) Af Amer 139, Est GFR (MDRD) Non-Af 115, BUN/Creatinine Ratio 19.8, Glucose 132 H, Calcium 9.3 Clinical Impression(s) from Imaging Studies Chest X-Ray 08/26/24 10:05 IMPRESSION: No radiographic evidence of acute cardiopulmonary disease. Electronically Signed: Jaxson James MD at 10:41 EST , Chest CTA 08/26/24 13:36
[2024-08-27] MEDS: guaiFENesin 1,200 MG Tablet 1200 MG PO ×2 (09:16→21:46)
[2024-08-27] MEDS: Azithromycin 250 MG Tablet 500 MG PO (09:16)
[2024-08-27] MEDS: hydroCHLOROthiazide 12.5mg 12.5 MG PO (09:16)
[2024-08-27] MEDS: Metoprolol Tartrate 25 MG Tablet 12.5 MG PO ×2 (09:16→21:46)
[2024-08-27] MEDS: Lisinopril 20 MG Tablet PO (09:16)
[2024-08-27] MEDS: Enoxaparin 40 MG/0.4 ML Syringe SC (09:17)
[2024-08-27] MEDS: Timolol 0.5% 5ML OPTH.BTL 1 DRP RIGHT EYE ×2 (09:18→21:47)
[2024-08-27] MEDS: prednisoLONE eye drops (5 mL) 1 DROP OPTH.BTL 1 DRP RIGHT EYE ×4 (09:18→21:48)
[2024-08-27] MEDS: BRIMONIDINE 0.2% 5ML BOTTLE 1 DRP RIGHT EYE ×2 (09:18→21:47)
[2024-08-27] MEDS: Ceftriaxone 2 GM in 0.9% Normal Saline (50mL MB+) 50 ML IV (10:29)
--- NOTE | 2024-08-27 10:29 | PCM.PN.HOSP ---
Reason for Visit Reason for Visit: Diagnoses Dyspnea, unspecified (08/26/24) Chest pain, unspecified (08/26/24) Abnormal findings on diagnostic imaging of other specified body structures (08/26/24) Objective Data Objective Data Vital Signs: Vital Signs Temp Pulse Resp BP Pulse Ox O2 Del Method 97.7 F L 88 18 150/89 H 92 Room Air 08/27/24 09:12 08/27/24 09:16 08/27/24 09:12 08/27/24 09:12 08/27/24 09:12 08/27/24 09:12 Oxygen Delivery Method Room Air Weight: 243 lb 6.245 oz Body Mass Index (BMI) 35.9 Intake & Output: Intake and Output for Last 24 Hours 08/25/24 08/26/24 08/27/24 23:59 23:59 23:59 Intake Total 290 / 290 120 / 120 Balance 290 / 290 120 / 120 Lab / Micro Data 08/27/24 05:37 08/27/24 05:37 Labs: Laboratory Results - last 24 hr 08/26/24 09:57: Sodium 137, Potassium 3.6, Chloride 102, Carbon Dioxide 30.0, Anion Gap 5, BUN 17, Creatinine 0.65 L, Estim Creat Clear Calc 93.98, Est GFR (MDRD) Af Amer 152, Est GFR (MDRD) Non-Af 126, BUN/Creatinine Ratio 26.0 H, Glucose 115 H, Calcium 9.0, Troponin I High Sens 19, B-Natriuretic Peptide 92.0 08/26/24 12:22: Troponin I High Sens 19 08/27/24 05:37: WBC 18.3 H, RBC 4.69, Hgb 13.9, Hct 42.7, MCV 91.0, MCH 29.6, MCHC 32.6, RDW Std Deviation 42.3, RDW Coeff of [place] 13.0, Plt Count 225, MPV 10.0, Immature Gran % (Auto) 0.800, Neut % (Auto) 89.8 H, Lymph % (Auto) 4.5 L, [place] % (Auto) 4.7, Eos % (Auto) 0.0, Baso % (Auto) 0.2, Absolute Neuts (auto) 16.4 H, Absolute Lymphs (auto) 0.83, Nucleated RBC % 0, Sodium 136, Potassium 3.7, Chloride 102, Carbon Dioxide 31.0, Anion Gap 3 L, BUN 14, Creatinine 0.71, Estim Creat Clear Calc 96.20, Est GFR (MDRD) Af Amer 139, Est GFR (MDRD) Non-Af 115, BUN/Creatinine Ratio 19.8, Glucose 132 H, Calcium 9.3 Micro: Microbiology 08/26/24 16:08 Mucosa - Nasopharyngeal Respiratory Panel (PCR) - Final 08/26/24 18:20 Urine, Clean Catch Legionella Antigen - Final 08/26/24 18:20 Urine, Clean Catch Streptococcus pneumoniae Antigen (M - Final 08/26/24 16:08 Mucosa - Nasopharyngeal SARS-CoV-2, Influenza & RSV (PCR) - Final Radiography Diagnostic Testing: Radiology Impression Chest X-Ray 08/26/24 10:05 IMPRESSION: No radiographic evidence of acute cardiopulmonary disease. Electronically Signed: Jasxon James MD at 10:41 EST , Chest CTA 08/26/24 13:36 IMPRESSION: CTA chest examination, without a demonstrated pulmonary embolism or arterial dissection. Mild right lower lung infiltrate. Electronically Signed: Sebastián Montejo MD at 15:23 EST , Physical Exam Narrative Seen and examined. Patient admitted with progressive worsening of shortness of breath but no chest pain. Productive cough with greenish phlegm, thick. Physical exam: General: Alert, Oriented x3, Cooperative. BMI 35.9 kg/m?, obesity grade 2 HEENT: Atraumatic, PERRLA, EOMI, Normocephalic Oral: No Gingival or Mucosal Lesions/ Ulcerations Neck: Supple, No JVD, Negative Carotid Bruits Chest wall/Lungs: Air entry diminished in bilateral lungs. Bronchial breathing on lower lungs, expiratory rhonchi. Cardiovascular: Regular rate, Regular Rhythm, Normal S1, Normal S2, No M/G/R Abdomen: Bowel Sounds Present, Soft, Non Tender, Non-Distended : No dysuria. No renal angle tenderness. No suprapubic tenderness. Extremities: No edema, Capillary Refill Less than 3 Seconds Skin: No rashes, No breakdown Musculoskeletal: No Tenderness to Palpation of Joints or Extremities Neurological: Cranial nerves II-XII grossly intact, DTR 2+/4. No acute focal neurological deficit. Psych/Mental Status: Normal Affect, Appropriate. Assessment & Plan Assessment/Plan (1) Dyspnea: PLAN: Plan 74-year-old male was admitted with progressive worsening of shortness of breath , for 2 to 3 days more with exertion. Patient has to stop after 15-20 feeds in order to catch breath. Cough with yellowish and clear sputum. Complain of pressure over upper chest and neck. No fever or chill. # Dyspnea on exertion due to COPD exacerbation: Patient is being admitted in PCU -Chest x-ray within normal limits - Triple PCR for SARS-CoV-2, flu and RSV are negative. Respiratory panel negative. Patient is being managed on scheduled bronchodilator, IV Solu-Medrol, Mucinex, incentive spirometry and Pep. Azithromycin. CT images were individually reviewed. PE ruled out. Mild infiltrate right lung base probably atelectasis. Patient does not have fever or hypoxic and is on azithromycin. I do not think patient has pneumonia but will follow. #Hypertension -Continue home medications once med rec completed #LLE abrasion -Present since before -Had been treated earlier this month for cellulitis -Does not presently appear to be overtly cellulitic and has no active purulent drainage -If any increasing erythema can consider oral antibiotics for cellulitis -Local wound care #Alcohol use -Reportedly drinks 2-3 beers roughly every day -Beers are 12 ounces and 4 to 5% -Denies any history or current withdrawal symptoms -Low suspicion for alcohol withdrawal but will place on CIWA without coverage at this time so this can be monitored more closely -Can likely DC CIWA before discharge if patient remains completely asymptomatic #?dilated esophagus -Patient with some upper chest and neck pressure -Review of CTA looks like there may be some esophageal dilation which would likely explain the symptoms -Awaiting formal read-> may need formal GI consult for inpatient versus outpatient evaluation/management pending read #DVT ppx: Lovenox subcu Microbiology Past 72 Hours 08/26/24 16:08 Mucosa - Nasopharyngeal Respiratory Panel (PCR) - Final 08/26/24 18:20 Urine, Clean Catch Legionella Antigen - Final 08/26/24 18:20 Urine, Clean Catch Streptococcus pneumoniae Antigen (M - Final 08/26/24 16:08 Mucosa - Nasopharyngeal SARS-CoV-2, Influenza & RSV (PCR) - Final Laboratory Results 08/26/24 09:05: Urine Color Yellow, Urine Clarity Clear, Urine pH 6.0, Ur Specific [place] 1.010, Urine Protein Negative, Urine Glucose (UA) Normal, Urine Ketones Negative, Urine Occult Blood Negative, Urine Nitrite Negative, Urine Bilirubin Negative, Urine Urobilinogen Normal, Ur Leukocyte Esterase Negative, Urine RBC 0 SEEN, Urine WBC 0 SEEN, Ur Squamous Epith Cells 0 SEEN, Urine Bacteria 0 SEEN, Urine Mucus 0 SEEN 08/26/24 09:57: WBC 14.8 H, RBC 4.57 L, Hgb 13.8, Hct 41.0, MCV 89.7, MCH 30.2, MCHC 33.7, RDW Std Deviation 41.9, RDW Coeff of [place] 12.8, Plt Count 221, MPV 9.0, Immature Gran % (Auto) 0.500, Neut % (Auto) 86.2 H, Lymph % (Auto) 6.2 L, [place] % (Auto) 6.4, Eos % (Auto) 0.5, Baso % (Auto) 0.2, Absolute Neuts (auto) 12.8 H, Absolute Lymphs (auto) 0.91, Nucleated RBC % 0, Sodium 137, Potassium 3.6, Chloride 102, Carbon Dioxide 30.0, Anion Gap 5, BUN 17, Creatinine 0.65 L, Estim Creat Clear Calc 93.98, Est GFR (MDRD) Af Amer 152, Est GFR (MDRD) Non-Af 126, BUN/Creatinine Ratio 26.0 H, Glucose 115 H, Calcium 9.0, Troponin I High Sens 19, B-Natriuretic Peptide 92.0 08/26/24 12:22: Troponin I High Sens 19 08/27/24 05:37: WBC 18.3 H, RBC 4.69, Hgb 13.9, Hct 42.7, MCV 91.0, MCH 29.6, MCHC 32.6, RDW Std Deviation 42.3, RDW Coeff of [place] 13.0, Plt Count 225, MPV 10.0, Immature Gran % (Auto) 0.800, Neut % (Auto) 89.8 H, Lymph % (Auto) 4.5 L, [place] % (Auto) 4.7, Eos % (Auto) 0.0, Baso % (Auto) 0.2, Absolute Neuts (auto) 16.4 H, Absolute Lymphs (auto) 0.83, Nucleated RBC % 0, Sodium 136, Potassium 3.7, Chloride 102, Carbon Dioxide 31.0, Anion Gap 3 L, BUN 14, Creatinine 0.71, Estim Creat Clear Calc 96.20, Est GFR (MDRD) Af Amer 139, Est GFR (MDRD) Non-Af 115, BUN/Creatinine Ratio 19.8, Glucose 132 H, Calcium 9.3 Clinical Impression(s) from Imaging Studies Chest X-Ray 08/26/24 10:05 IMPRESSION: No radiographic evidence of acute cardiopulmonary disease. Electronically Signed: Jaxson James MD at 10:41 EST , Chest CTA 08/26/24 13:36 IMPRESSION: CTA chest examination, without a demonstrated pulmonary embolism or arterial dissection. Mild right lower lung infiltrate. Electronically Signed: Sebastián Montejo MD at 15:23 EST , Charges/Coding Visit Charges Inpatient E&M: 25242 Subs Hosp L2
--- NOTE | 2024-08-27 18:00 | CASEMGMT ---
RN?CM?CAL[employer] LABORATORY TECHNICIAN?CM?to room to meet with patient for initial transition planning/care coordination?assessment.?RN?CM?introduced self and role at [facility].? Pt voices understanding and consents to?assessment?at this time.? Pt resting in bed in no distress at this time.? Pt is A/O at this time and answers all questions appropriately.?? Care providers, pharmacy, and demographics verified/updated at this time. PCP: [facility]. Specialists: Dr Velarde-cardiology. Pt states he has an appt 09/28. This was added to dc plan. Pt also sees a neurologist @ the [place] in [place]. He does not remember name of physician. Preferred Pharmacy: [facility] in [place] for short-term fill. He gets most of his maintenance meds through the [place]. Insurance: [employer] [facility], [place] benefits. Prescription Benefit:?yes LNOK: , [place] Living Arrangements: Lives w/ in bi-level home w/ 7-8 steps to enter home. Denies difficulty w/stairs. Independent. Pt and share home mgnt tasks. Transportation:?Pt states drives self and states no transportation concerns at this time.? also drives. DME: Pt uses a walking stick for uneven ground. Has a cane and walker available, but does not use. Denies need for other DME. HHC/SNF: No hx. No needs identified. ETOH: Pt states some days he doesn't drink any ETOH, other days he may drink up to 6, stating it varies. He states he has been drinking for years and denies wanting resources for stopping ETOH use, stating he does not want to quit, stating, I like beer. Pt wishes to return home and states has no concerns with going home at time of discharge.? PLAN:??[address] BSN?RN?CM
[2024-08-27 19:48] LABS: M R Staph aureus DNA By PCR Negative (Negative); Probe Check PASS; Specimen Processing Control PASS; Staph aureus DNA By PCR NEGATIVE (Negative)
[2024-08-27] MEDS: Latanoprost 0.005% 1 Bottle 1 DRP RIGHT EYE (21:46)
[2024-08-27] MEDS: Simvastatin 20 MG Tablet PO (21:48)
[2024-08-28 03:40] VITALS: BP 149/93; PULSE 80; RESP 18; TEMP 36.7; O2SAT 95
[2024-08-28] MEDS: 0.9% Saline Lock 10 ML Syringe IV (05:11)
[2024-08-28 05:24] VITALS: BMI 36.3
[2024-08-28 07:14] VITALS: PULSE 98; RESP 20; O2SAT 95
[2024-08-28] MEDS: Ipratropium/Albuterol Sulfate 3 ML AMPUL.NEB INHALATION ×2 (07:14→11:11)
[2024-08-28 07:20] LABS: Absolute Lymphocyte Count 0.68 X10^3/uL (0.83-4.51); Absolute Neutrophil Count 12.9 X10^3/uL (2.0-7.7); Basophil# 0.02 X10^3/uL; Basophil% 0.1 % (0-1); Hematocrit 39.9 % (40-54); Hemoglobin 13.3 g/dL (13.0-16.5); Lymphocyte # 0.68 X10^3/ul (0.83-4.51); Lymphocyte % 4.8 % (19-41); Mean Corp Hgb Conc 33.3 g/dL (32-36); Mean Corpuscular Hgb 30.2 pg (27.0-32.0); Mean Corpuscular Volume 90.7 fL (80-94); Mean Platelet Vol. 9.9 fl (6.2-12.0); Monocyte# 0.57 X10^3/uL; NRBC Flagged by Analyzer 0 % (0-5); Neutrophil # 12.92 X10^3/uL (2.7-7.7); Neutrophil % 90.3 % (47-70); Platelet Count 219 K/mm3 (150-450); RBC Distribution Width CV 12.9 % (11.6-14.6); RBC Distribution Width SD 42.9 fl (35.1-43.9); White Blood Count 14.3 K/mm3 (4.4-11.0)
[2024-08-28 07:43] LABS: Anion Gap 6 (5-15); BUN 20 mg/dL (7-18); BUN/Creat Ratio 32.3 RATIO (10-20); Calcium,Total 8.8 mg/dL (8.5-10.1); Chloride 104 mmol/L (98-107); Creatinine, Serum 0.62 mg/dL (0.70-1.30); EST Glomerular Filtration Rate 134 mL/min (>60); Est Glom Filt Rate - Afr Amer 162 mL/min (>60); Estimated Creatinine Clearance 96.73 ml/min; Glucose 132 mg/dL (74-106); Potassium 3.5 mmol/L (3.5-5.1); Sodium Level 136 mmol/L (136-145)
[2024-08-28 08:54] VITALS: BP 155/93; PULSE 101; RESP 20; TEMP 36.7; O2SAT 92
[2024-08-28] MEDS: Azithromycin 250 MG Tablet 500 MG PO (08:57)
[2024-08-28] MEDS: Enoxaparin 40 MG/0.4 ML Syringe SC (08:57)
[2024-08-28 08:58] VITALS: PULSE 101
[2024-08-28] MEDS: hydroCHLOROthiazide 12.5mg 12.5 MG PO (08:58)
[2024-08-28] MEDS: Metoprolol Tartrate 25 MG Tablet 12.5 MG PO (08:58)
[2024-08-28] MEDS: guaiFENesin 1,200 MG Tablet 1200 MG PO (08:58)
[2024-08-28] MEDS: Lisinopril 20 MG Tablet PO (08:58)
[2024-08-28] MEDS: BRIMONIDINE 0.2% 5ML BOTTLE 1 DRP RIGHT EYE (09:00)
[2024-08-28] MEDS: Mupirocin Ointment 22gm Tube 1 APPLIC TOPICAL (09:00)
[2024-08-28] MEDS: prednisoLONE eye drops (5 mL) 1 DROP OPTH.BTL 1 DRP RIGHT EYE (09:01)
[2024-08-28] MEDS: Timolol 0.5% 5ML OPTH.BTL 1 DRP RIGHT EYE (09:01)
[2024-08-28] MEDS: Ceftriaxone 2 GM in 0.9% Normal Saline (50mL MB+) 50 ML IV (09:06)
--- NOTE | 2024-08-28 11:00 | PCM.DC ---
Discharge Instructions Diet Discharge Diet: Low fat / Low cholesterol and 2000 mg Sodium Diet DC O2, CPAP, BIPAP needs Home O2 Discharge instructions: No Dressing / Incision Discharge Activity: Return to Normal Activity Weight Bearing Status: Weight bearing as tolerated Dressing / Incision Call your doctor if you observe: Fever of 101 or Higher, Coldness, Increased Pain, Numbness or Tingling, Change in Color, Inability to urinate, Inability to have a bowel movement, Shortness of breath, Dizziness, Fainting spells, Swelling in the ankles, Chest pain, Prolonged hiccupping, Increased palpitations (irregular heartbeat) and Calf discomfort Follow Up Care When: IN 2 WEEKS Test Results: Test results from this visit will be discussed in further detail at your follow-up appointment, if applicable. Discharge Plan Admission Admit Date/Time: 08/26/24 14:44 Primary Reason for Your Visit: COPD exacerbation. Mild evolving pneumonia Attending Provider: Bola Yeung Primary Care Provider: [facility],[place] Consulting Providers: Ashely Lopez Instructions Additional Instructions / Restrictions: Outside summer associate symptoms are Dr. Wayne Laguna and Dr. Evon Holliday, [facility]. Patient advised to follow-up summer associate in 2 weeks. Will need PFT and sleep study Continue incentive spirometry and PEP for 1 week Discharge Orders/Prescriptions Prescriptions: New mupirocin 2 % Ointment 1 applic topical BID 7 Days Qty: 22 0RF Protocol: *Topical Application Instructions APPLICATION INSTRUCTIONS: apply to left iqbal wound BID with dressing change levofloxacin 500 mg tablet 500 mg PO DAILY 5 Days Qty: 5 0RF prednisone 20 mg tablet 40 mg PO DAILY 5 Days Qty: 10 0RF dextromethorphan-guaifenesin [Mucinex DM] 60-1,200 mg tablet extended release 12 hr 1 tab PO Q12H 7 Days Qty: 14 0RF Continued simvastatin 20 mg Tablet 20 mg PO QPM metoprolol tartrate 25 MG tablet 12.5 mg PO BID albuterol sulfate 1 INHALER inhaler 2 puff INHALATION Q4H PRN PRN (Reason: Shortness of breath/wheezing) Qty: 1 0RF lisinopril-hydrochlorothiazide 20-12.5 mg Tablet 1 tab PO DAILY budesonide-formoterol [Symbicort] 160-4.5 mcg/actuation Hfa Aerosol Inhaler 2 puff INHALATION BID latanoprost 0.005 % drops 1 drp RIGHT EYE QHS prednisolone acetate 1 % drops,suspension 1 drp RIGHT EYE 4X/DAY brimonidine-timolol 0.2-0.5 % drops 1 drp RIGHT EYE BID Referrals / Follow Up: Edwar Velarde MD [Med Staff - Active Staff] - 09/28/24 (As previously scheduled, per pt. ) [facility] [Primary Care Provider] - 3-5 Days Jesse Holliday DO [Med Staff - Active Staff] - Within 2 Weeks Disposition Disposition (needs filled in before D/C Order can be placed): Home, Self Care
[2024-08-28 11:03] VITALS: O2SAT 90; O2SAT 94
--- NOTE | 2024-08-28 11:06 | DS.PCM_ITS ---
Providers Date of Admission: 08/26/24 Date of Discharge: 08/28/24 Primary Care Physician: [facility] Consultations 08/26/24 17:49 Consult: Gastroenterology Routine Consulting Provider: [facility] Reason for Consult: ??dilated esophagus on CT w/ pain in upper chest to neck EMERGENT Consult: No MD Notified: Yes Date Notified: 08/26/24 Time Notified: 18:14 Method of Notification: Text Reason For Visit: HYPOXIA Diagnosis Discharge Diagnosis (1) Dyspnea: Status: Acute Code(s): R06.00 - Dyspnea, unspecified Plan 74-year-old male was admitted with progressive worsening of shortness of breath , for 2 to 3 days more with exertion. Patient has to stop after 15-20 feeds in order to catch breath. Cough with yellowish and clear sputum. Complain of pressure over upper chest and neck. No fever or chill. # Dyspnea on exertion due to COPD exacerbation with possible early right lung base evolving pneumonia: Patient is being admitted in PCU -Chest x-ray within normal limits - Triple PCR for SARS-CoV-2, flu and RSV are negative. Respiratory panel negative. Patient is being managed on scheduled bronchodilator, IV Solu-Medrol, Mucinex, incentive spirometry and Pep. Azithromycin. CT images were individually reviewed. PE ruled out. Mild infiltrate right lung base with bilateral groundglass opacity in the RML and lower lobes probably atelectasis or early evolving pneumonia. Patient does not have fever or hypoxic and is on azithromycin. 08/28: With symptoms described increased cough, sputum production and shortness of breath with mild right lung base infiltrate most likely involving early pneumonia or atelectasis. Sputum culture pending patient is discharged on Levaquin to complete a 7 days of antibiotic, prednisone burst therapy. Patient had pneumonia and flu shot. 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 Patient given prescription of 1 week of mupirocin ointment. Follow with PCP #Alcohol use -Reportedly drinks 2-3 beers roughly every day -Beers are 12 ounces and 4 to 5% -Denies any history or current withdrawal symptoms -Low suspicion for alcohol withdrawal but will place on CIWA without coverage at this time so this can be monitored more closely -Can likely DC CIWA before discharge if patient remains completely asymptomatic -Patient with some upper chest and neck pressure but the CT did not report esophageal dilatation. #DVT ppx: Lovenox subcu Microbiology Past 72 Hours 08/26/24 16:08 Mucosa - Nasopharyngeal Respiratory Panel (PCR) - Final 08/26/24 18:20 Urine, Clean Catch Legionella Antigen - Final 08/26/24 18:20 Urine, Clean Catch Streptococcus pneumoniae Antigen (M - Final 08/26/24 16:08 Mucosa - Nasopharyngeal SARS-CoV-2, Influenza & RSV (PCR) - Final Laboratory Results 08/26/24 09:05: Urine Color Yellow, Urine Clarity Clear, Urine pH 6.0, Ur Specific [place] 1.010, Urine Protein Negative, Urine Glucose (UA) Normal, Urine Ketones Negative, Urine Occult Blood Negative, Urine Nitrite Negative, Urine Bilirubin Negative, Urine Urobilinogen Normal, Ur Leukocyte Esterase Negative, Urine RBC 0 SEEN, Urine WBC 0 SEEN, Ur Squamous Epith Cells 0 SEEN, Urine Bacteria 0 SEEN, Urine Mucus 0 SEEN 08/26/24 09:57: WBC 14.8 H, RBC 4.57 L, Hgb 13.8, Hct 41.0, MCV 89.7, MCH 30.2, MCHC 33.7, RDW Std Deviation 41.9, RDW Coeff of Donna 12.8, Plt Count 221, MPV 9.0, Immature Gran % (Auto) 0.500, Neut % (Auto) 86.2 H, Lymph % (Auto) 6.2 L, Christian % (Auto) 6.4, Eos % (Auto) 0.5, Baso % (Auto) 0.2, Absolute Neuts (auto) 12.8 H, Absolute Lymphs (auto) 0.91, Nucleated RBC % 0, Sodium 137, Potassium 3.6, Chloride 102, Carbon Dioxide 30.0, Anion Gap 5, BUN 17, Creatinine 0.65 L, Estim Creat Clear Calc 93.98, Est GFR (MDRD) Af Amer 152, Est GFR (MDRD) Non-Af 126, BUN/Creatinine Ratio 26.0 H, Glucose 115 H, Calcium 9.0, Troponin I High Sens 19, B-Natriuretic Peptide 92.0 08/26/24 12:22: Troponin I High Sens 19 08/27/24 05:37: WBC 18.3 H, RBC 4.69, Hgb 13.9, Hct 42.7, MCV 91.0, MCH 29.6, MCHC 32.6, RDW Std Deviation 42.3, RDW Coeff of Donna 13.0, Plt Count 225, MPV 10.0, Immature Gran % (Auto) 0.800, Neut % (Auto) 89.8 H, Lymph % (Auto) 4.5 L, Christian % (Auto) 4.7, Eos % (Auto) 0.0, Baso % (Auto) 0.2, Absolute Neuts (auto) 16.4 H, Absolute Lymphs (auto) 0.83, Nucleated RBC % 0, Sodium 136, Potassium 3.7, Chloride 102, Carbon Dioxide 31.0, Anion Gap 3 L, BUN 14, Creatinine 0.71, Estim Creat Clear Calc 96.20, Est GFR (MDRD) Af Amer 139, Est GFR (MDRD) Non-Af 115, BUN/Creatinine Ratio 19.8, Glucose 132 H, Calcium 9.3 Clinical Impression(s) from Imaging Studies Chest X-Ray 08/26/24 10:05 IMPRESSION: No radiographic evidence of acute cardiopulmonary disease. Electronically Signed: Jaxson James MD at 10:41 EST , Chest CTA 08/26/24 13:36 IMPRESSION: CTA chest examination, without a demonstrated pulmonary embolism or arterial dissection. Mild right lower lung infiltrate. Electronically Signed: Sebastián Montejo MD at 15:23 EST , Medications at Discharge Home Medications metoprolol tartrate 25 mg tablet 12.5 mg PO BID 08/06/16 simvastatin 20 mg tablet 20 mg PO QPM 08/06/16 albuterol sulfate 90 mcg/actuation aerosol inhaler 2 puff inhalation Q4H PRN PRN Shortness of breath/wheezing ##1 09/07/17 budesonide-formoterol HFA 160 mcg-4.5 mcg/actuation aerosol inhaler (Symbicort) 2 puff inhalation BID 01/26/21 lisinopril 20 mg-hydrochlorothiazide 12.5 mg tablet 1 tab PO DAILY 01/26/21 brimonidine 0.2 %-timolol 0.5 % eye drops 1 drp RIGHT EYE BID 08/18/24 latanoprost 0.005 % eye drops 1 drp RIGHT EYE QHS 08/18/24 prednisolone acetate 1 % eye drops,suspension 1 drp RIGHT EYE 4X/DAY 08/18/24 dextromethorphan-guaifenesin ER 60 mg-1,200 mg tab,extend release,12hr (Mucinex DM) 1 tab PO Q12H 7 days #14 tabs 08/28/24 levofloxacin 500 mg tablet 500 mg PO DAILY 5 days #5 tabs 08/28/24 mupirocin 2 % topical ointment 1 applic topical BID 1 week #22 grams 08/28/24 prednisone 20 mg tablet 40 mg (2 x 20 mg) PO DAILY 5 days #10 tabs 08/28/24 Physical Exam Narrative Seen and examined. Shortness of breath cough is better. Patient rested his sputum is clear now. Currently on room air Patient was admitted with progressive worsening of shortness of breath but no chest pain. Productive cough with greenish phlegm, thick. Physical exam: General: Alert, Oriented x3, Cooperative. BMI 35.9 kg/m?, obesity grade 2 HEENT: Atraumatic, PERRLA, EOMI, Normocephalic Oral: No Gingival or Mucosal Lesions/ Ulcerations Neck: Supple, No JVD, Negative Carotid Bruits Chest wall/Lungs: Air entry diminished in bilateral lungs. Mild expiratory rhonchi but much improved Cardiovascular: Regular rate, Regular Rhythm, Normal S1, Normal S2, No M/G/R Abdomen: Bowel Sounds Present, Soft, Non Tender, Non-Distended : No dysuria. No renal angle tenderness. No suprapubic tenderness. Extremities: No edema, Capillary Refill Less than 3 Seconds Skin: No rashes, No breakdown Musculoskeletal: No Tenderness to Palpation of Joints or Extremities Neurological: Cranial nerves II-XII grossly intact, DTR 2+/4. No acute focal neurological deficit. Psych/Mental Status: Normal Affect, Appropriate. Weight / BMI Weight Weight: 246 lb 0.574 oz Body Mass Index (BMI) 36.3 ABG / Lab / Microbiology Data 08/28/24 06:25 08/28/24 06:25 Laboratory: Laboratory Results - last 24 hr 08/27/24 17:55: S.aureus Protein A PCR NEGATIVE, MRSA (PCR) Negative 08/28/24 06:25: WBC 14.3 H, RBC 4.40 L, Hgb 13.3, Hct 39.9 L, MCV 90.7, MCH 30.2, MCHC 33.3, RDW Std Deviation 42.9, RDW Coeff of Donna 12.9, Plt Count 219, MPV 9.9, Immature Gran % (Auto) 0.800, Neut % (Auto) 90.3 H, Lymph % (Auto) 4.8 L, Christian % (Auto) 4.0, Eos % (Auto) 0.0, Baso % (Auto) 0.1, Absolute Neuts (auto) 12.9 H, Absolute Lymphs (auto) 0.68 L, Nucleated RBC % 0, Sodium 136, Potassium 3.5, Chloride 104, Carbon Dioxide 27.0, Anion Gap 6, BUN 20 H, Creatinine 0.62 L , Estim Creat Clear Calc 96.73, Est GFR (MDRD) Af Amer 162, Est GFR (MDRD) Non- Af 134, BUN/Creatinine Ratio 32.3 H, Glucose 132 H, Calcium 8.8 Microbiology: Microbiology 08/26/24 16:08 Mucosa - Nasopharyngeal Respiratory Panel (PCR) - Final 08/26/24 18:20 Urine, Clean Catch Legionella Antigen - Final 08/26/24 18:20 Urine, Clean Catch Streptococcus pneumoniae Antigen (M - Final 08/26/24 16:08 Mucosa - Nasopharyngeal SARS-CoV-2, Influenza & RSV (PCR) - Final D/C Instructions Discharge Diet: Low fat / Low cholesterol and 2000 mg Sodium Diet Weight Bearing Status: Weight bearing as tolerated Call your doctor if you observe: Fever of 101 or Higher, Coldness, Increased Pain, Numbness or Tingling, Change in Color, Inability to urinate, Inability to have a bowel movement, Shortness of breath, Dizziness, Fainting spells, Swelling in the ankles, Chest pain, Prolonged hiccupping, Increased palpitations (irregular heartbeat) and Calf discomfort DC O2, CPAP, BIPAP Needs Home O2 Discharge instructions: No When: IN 2 WEEKS Meaningful Use Info Meaningful Use Meaningful Use Diagnoses (Choose all that apply): None applicable Ischemic Stroke Statin Dosing Therapy Reference: STATIN DOSE THERAPY REFERENCE: * Patients > 75 years receive moderate or high dose statin therapy. * Patients 75 years or YOUNGER should receive HIGH intensity statin dose unless contraindicated. You will be required to document reason for non-treatment if statin daily dose does not meet guidelines. HIGH DOSE STATIN THERAPY DAILY Atorvastatin > than or = to 40 mg Rosuvastatin > than or = to 20 mg Amlodipine + Atorvastatin > than or = to 2.5/40 mg Ezetimibe + Simvastatin 10/80 mg Simvastatin 80mg Discharge Plan Admission Admit Date/Time: 08/26/24 14:44 Primary Reason for Your Visit: COPD exacerbation. 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 Wayne Laguna and Dr. Evon Holliday, [facility]. Patient advised to follow-up sulfuric acid plant operator in 2 weeks. Will need PFT and sleep study Continue incentive spirometry and PEP for 1 week Discharge Orders/Prescriptions Prescriptions: New mupirocin 2 % Ointment 1 applic topical BID 7 Days Qty: 22 0RF Protocol: *Topical Application Instructions APPLICATION INSTRUCTIONS: apply to left iqbal wound BID with dressing change levofloxacin 500 mg tablet 500 mg PO DAILY 5 Days Qty: 5 0RF prednisone 20 mg tablet 40 mg PO DAILY 5 Days Qty: 10 0RF dextromethorphan-guaifenesin [Mucinex DM] 60-1,200 mg tablet extended release 12 hr 1 tab PO Q12H 7 Days Qty: 14 0RF Continued simvastatin 20 mg Tablet 20 mg PO QPM metoprolol tartrate 25 MG tablet 12.5 mg PO BID albuterol sulfate 1 INHALER inhaler 2 puff INHALATION Q4H PRN PRN (Reason: Shortness of breath/wheezing) Qty: 1 0RF lisinopril-hydrochlorothiazide 20-12.5 mg Tablet 1 tab PO DAILY budesonide-formoterol [Symbicort] 160-4.5 mcg/actuation Hfa Aerosol Inhaler 2 puff INHALATION BID latanoprost 0.005 % drops 1 drp RIGHT EYE QHS prednisolone acetate 1 % drops,suspension 1 drp RIGHT EYE 4X/DAY brimonidine-timolol 0.2-0.5 % drops 1 drp RIGHT EYE BID Referrals / Follow Up: Edwar Velarde MD [Med Staff - Active Staff] - 09/28/24 (As previously scheduled, per pt. ) Jesse Holliday DO [Med Staff - Active Staff] - Within 2 Weeks [facility],[place] [Primary Care Provider] - 3-5 Days Disposition Disposition (needs filled in before D/C Order can be placed): Home, Self Care Charges/Coding Visit Charges Inpatient E&M: 75530 Disch Hosp >30min
[2024-08-28 11:11] VITALS: PULSE 78; RESP 16
== END 2024-08-28 11:58 | disposition home or self-care (01) | DRG 190 ==
LOC: ED 15:09 → PCU 15:23
PROVIDERS: Admitting Provider Internal Medicine; Emergency Provider Emergency Medicine; Visit Provider Internal Medicine
DX: J44.1 Chronic obstructive pulmonary disease with (acute) exacerbation (principal); J18.9 Pneumonia, unspecified organism; J98.11 Atelectasis; I11.0 Hypertensive heart disease with heart failure; J44.0 Chronic obstructive pulmonary disease with (acute) lower respiratory infection; I50.9 Heart failure, unspecified; S80.812A Abrasion, left lower leg, initial encounter; M79.89 Other specified soft tissue disorders; K22.89 Other specified disease of esophagus; R09.02 Hypoxemia; Z11.52 Encounter for screening for COVID-19; Z79.51 Long term (current) use of inhaled steroids; Z87.891 Personal history of nicotine dependence; Z79.899 Other long term (current) drug therapy
CPT/HCPCS: 36415; 71046; 71275; 80048; 81001; 83880; 84484; 85025; 87070; 87205; 87449; 87631; 87633; 87640; 93005; 94640; 99252; 99285; Q9967; A4216; G0463; J0696

== ENCOUNTER → 2024-09-30 | Outpatient (CLI) | payer MEDICARE, SELFPAY | END | disposition home or self-care (01) | LOC: PSN 10:36 | PROVIDERS: Referring Provider Nurse Practitioner Family; Visit Provider Nurse Practitioner Family | DX: R06.02 Shortness of breath (principal) | CPT/HCPCS: 94060; 94726; 94729 ==

== ENCOUNTER → 2024-10-11 | Outpatient (CLI) | payer MEDICARE, SELFPAY ==
[2024-10-11 11:24] VITALS: PULSE 100; PULSE 101; PULSE 104; PULSE 109; PULSE 115; PULSE 117; PULSE 123; O2SAT 92; O2SAT 93; O2SAT 94; O2SAT 95; O2SAT 96
--- NOTE | 2024-10-17 12:06 | WT_ITS ---
PSN 6 Minute Walk Test 6 Minute Walk Test 6 Minute Walk Test: 6 Minute Walk Test PSN:6-Minute Walk Test Start: 10/11/24 11:24 Freq: Status: Active Protocol: RESP.6MINW Document 10/11/24 11:24 BILLIE (Rec: 10/11/24 11:27 BILLIE [id number]) 6 Minute Walk Test Date Performed 10/11/24 Time Performed 11:10 Height 5 ft 10 in Weight: 250 lb Weight in Pounds 250.[address]: Verna Eli Assistive device Cane used: Pre-test Oxygen Delivery Room Air Method Pulse Ox (%) 95 Pulse Rate (60-100 100 beats/min) Dyspnea Kvng Scale ( 0 0-10) Exertion Kvng Scale 6 (6-20) 1st minute Oxygen Delivery Room Air Method Pulse Ox (%) 94 Pulse Rate (60-100 101 H beats/min) 2nd minute Oxygen Delivery Room Air Method Pulse Ox (%) 94 Pulse Rate (60-100 104 H beats/min) 3rd minute Oxygen Delivery Room Air Method Pulse Ox (%) 93 Pulse Rate (60-100 109 H beats/min) 4th minute Oxygen Delivery Room Air Method Pulse Ox (%) 92 Pulse Rate (60-100 117 H beats/min) Number of Rests 1 Taken 5th minute Oxygen Delivery Room Air Method Pulse Ox (%) 94 Pulse Rate (60-100 115 H beats/min) 6th minute Oxygen Delivery Room Air Method Pulse Ox (%) 94 Pulse Rate (60-100 123 H beats/min) Dyspnea Kvng Scale ( 5 0-10) Exertion Kvng Scale 13 (6-20) Post-test Oxygen Delivery Room Air Method Pulse Ox (%) 96 Pulse Rate (60-100 101 H beats/min) Full Laps Walked 13 Partial Lap, Number 35 of Tiles Walked Total Distance 802 Walked (ft) Interpretation Interpretation: The patient ambulated 802 feet over the course of 6 minutes beginning on room air with use of a cane. Pretesting oxygen saturation was noted to be 95% on room air. With ambulation, the timur oxygen saturation was 92%. There was no s ignificant exertional oxygen desaturation. Recommendations Recommendations: There is no indication for the use of supplemental oxygen at this time.
== END | disposition home or self-care (01) ==
LOC: PSN 11:02
PROVIDERS: Referring Provider Nurse Practitioner Family; Visit Provider Nurse Practitioner Family
DX: R06.02 Shortness of breath (principal)
CPT/HCPCS: 94618

== ENCOUNTER → 2024-11-14 | Outpatient (CLI) | payer MEDICARE, SELFPAY ==
--- NOTE | 2024-11-14 09:50 | ECHOCS_ITS ---
Reason For Study Reason For Study: DYSPNEA/SOB Procedure This was a 2D Doppler, Color Flow transthoracic echocardiogram. The study was technically difficult. Exam performed in department. Left Ventricle Normal LV size. Left ventricular systolic function is normal. The left ventricular ejection fraction is 60 %. No regional wall motion abnormalities noted. Right Ventricle Normal RV size. Normal systolic function. Atria Normal left atrium. Normal right atrium. Mitral Valve There is mild mitral annular calcification. Tricuspid Valve Normal tricuspid valve. Mild (1+) tricuspid valve insufficiency. Pulmonary artery systolic pressure is 37 mmHg. Aortic Valve Trisinus/trileaflet aortic valve. Moderate focal aortic valve thickening. Peak aortic valve gradient 21 mmHg. Mean aortic valve gradient 11 mmHg. Pulmonic Valve The pulmonic valve is not well visualized. Great Vessels The aortic root is not well visualized. The pulmonary artery is normal size. Normal inferior vena cava. Pericardium/Pleural No pericardial effusion. Medication 22 gauge I.V. with prn adaptor inserted into right arm. Diluted definity 4ml given slow IV push to enhance endocardial definition. MMode/2D Measurements & Calculations LVIDd: 4.7 cm IVSd: 1.1 cm LVOT diam: 2.1 cm LVIDs: 3.1 cm LVPWd: 1.2 cm RVDd: 3.7 cm FS: 33.0 % LVOT area: 3.6 cm2 Ao root diam: 3.6 cm LAV(MOD-bp): 43.1 ml LVAd ap4: 30.4 cm2 LAV(MOD-bp) Indexed: 19.1 ml/m2 LVLd ap4: 8.2 cm LAV(MOD-sp2): 41.3 ml EDV(MOD-sp4): 97.2 ml LAV(MOD-sp4): 39.8 ml EDV(sp4-el): 95.7 ml LVAs ap4: 17.4 cm2 LVLs ap4: 7.1 cm ESV(MOD-sp4): 37.7 ml ESV(sp4-el): 36.3 ml EF(MOD-sp4): 61.2 % EF(sp4-el): 62.1 % SV(MOD-sp4): 59.5 ml SV(sp4-el): 59.4 ml LA A4 area: 16.7 cm2 SI(MOD-sp4): 26.3 ml/m2 LA dimension(2D): 3.4 cm RA A4 area: 16.5 cm2 TAPSE: 2.1 cm Time Measurements MV dec time: 0.29 sec Doppler Measurements & Calculations MV E max demarco: 61.7 cm/sec Lat Peak E' Demarco: 9.0 cm/sec Med Peak E' Demarco: 7.4 cm/sec MV A max demarco: 90.9 cm/sec E/E' lat: 6.9 E/E' med: 8.4 MV E/A: 0.68 Ao V2 max: 229.9 cm/sec LV V1 max: 96.8 cm/sec SV(LVOT): 76.4 ml Ao max P.2 mmHg LV V1 max P.8 mmHg Ao V2 mean: 156.9 cm/sec LV V1 mean P.1 mmHg Ao mean P.9 mmHg LV V1 mean: 68.0 cm/sec Ao V2 VTI: 44.8 cm LV V1 VTI: 21.5 cm AV (velocity ratio): 0.48 RICHARD(I,D): 1.7 cm2 RICHARD(V,D): 1.5 cm2 PA V2 max: 109.6 cm/sec TR max demarco: 289.2 cm/sec TR max P.5 mmHg ECHO/Echo Complete W/ Contrast Interpretation Summary Normal LV size. Left ventricular systolic function is normal. The left ventricular ejection fraction is 60 %. Moderate focal aortic valve thickening. Mean aortic valve gradient 11 mmHg. Contrast injection was performed. Ordering Physician: Edwar Velarde Referring Physician: [facility] Performed By: Scarlett Garcia RDCS
== END | disposition home or self-care (01) ==
LOC: CVS 09:49
PROVIDERS: Referring Provider Internal Medicine Cardiovascular Disease; Visit Provider Internal Medicine Cardiovascular Disease
DX: R06.02 Shortness of breath (principal)
CPT/HCPCS: 93306; Q9957; A4216; C8929

== ENCOUNTER → 2024-11-17 | Outpatient (CLI) | payer MEDICARE, SELFPAY ==
--- NOTE | 2024-11-17 09:54 | STE_ITS ---
Reason For Study Stress Results Protocol: DOBUTAIMINE Maximum Predicted HR: 144 bpm Target HR: 122 bpm % Maximum Predicted HR: 93 % DurationHeart Rate Stage (mm:ss) (bpm) BP Dose Comment BASELINE 81 134/92 3 CC DEFINITY TOTAL FOR TEST STAGE 1 3:25 112 146/7110.00 STAGE 2 2:03 134 121/7020.00 RECOVERY 96 155/81 Stress Duration: 5:28 mm:ss Maximum Stress HR: 134 bpm Baseline Echocardiogram Findings Stress Echo Wall motion Data Resting WM Intermediate WM Stress WM ECHO/Stress Test Echo w/o Contrast Interpretation Summary Dobutamine stress echocardiogram. 74-year-old man with a history of chest discomfort. Resting EKG demonstrates sinus rhythm with a rate of 86 bpm resting blood press ure is 134/92 mmHg. Dobutamine was infused starting at 10 mcg/kg/min and increasing to a peak of 20 mcg/kg/min. Co ntinuous EKG monitoring was performed. Patient maintained sinus rhythm throughout the recording and the peak heart rat e was 139 bpm which was 96% of max impacted heart rate the maximum workload was 1 metabolic equivalent. At rest th ere were no ST or T wave changes noted suggest ischemia and no significant arrhythmias were noted. Occasional prematur e ventricular complexes were present. The peak blood pressure was 155/81 mmHg. Dobutamine stress echocardiogram. Images were obtained with Definity enhancement. The resting echocardiogram demo nstrated ejection fraction of 55% with no wall motion abnormalities and a low dose and peak there was enhancement and aug mentation of contractility with a peak of 70%. No wall motion abnormalities were noted. Conclusion: Dobutamine stress echocardiogram with no evidence of ischemia. Ordering Physician: Edwar Velarde Referring Physician: Edwar Velarde Performed By: Margarita Fox RCS
--- NOTE | 2024-11-17 10:51 | CT_ITS ---
PROCEDURE: CHEST WITHOUT CONTRAST 11/17/2024 REASON FOR EXAM: BILATERAL GROUNDGLASS OPACITIES TECHNIQUE: Chest CT without contrast. Coronal and Sagittal reconstruction series were provided. One or more dose reduction techniques were used (e.g., Automated exposure control, adjustment of the mA and/or kV according to patient size, use of iterative reconstruction technique COMPARISON: Comparison is made with prior study dated August 26, 2024. RADIATION DOSE SUMMARY: CTDlvol: 18.87 mGy DLP: 745.09 mGycm FINDINGS: Hardware: None Lymph nodes: Calcified right paratracheal lymph nodes. Small mediastinal lymph nodes. Calcified left hilar lymph nodes. Heart and Vasculature: The heart is not enlarged. Atherosclerotic calcifications of the thoracic aorta. Thoracic aorta and pulmonary arteries have normal contours; noncontrast technique limits evaluation. Coronary Artery Calcifications: Present Lungs and Airways: Mild increased markings in the lingular segment of the left upper lobe suggestive of scarring. This is unchanged. No acute infiltrate is seen. Pleura: Unremarkable Upper Abdomen: Multiple calcified splenic granulomas Bones: Degenerative changes of the thoracic spine. CT/Chest without Contrast IMPRESSION: Mild residual scarring in the lingular segment of the left upper lobe. No othe r abnormality is seen. Reading Location: [facility]
== END | disposition home or self-care (01) ==
PROVIDERS: Referring Provider Internal Medicine Cardiovascular Disease; Visit Provider Internal Medicine Cardiovascular Disease
DX: R93.89 Abnormal findings on diagnostic imaging of other specified body structures (principal); R06.02 Shortness of breath
CPT/HCPCS: 71250; 93017; 93350

== ENCOUNTER → 2025-03-07 | Outpatient (CLI) | payer MEDICARE, SELFPAY ==
--- NOTE | 2025-03-07 10:03 | CDU_ITS ---
Reason For Study Reason For Study: LIGHTHEADEDNESS Rt. Velocities/BP Lt. Velocities/BP Prox CCA 76.8/8.7 cm/sec. Prox CCA 112.5/15.5 cm/sec. Mid CCA 70.2/10.9 cm/sec. Mid CCA 76.9/11.8 cm/sec. Dist CCA 58.1/9.8 cm/sec. Dist CCA 59.7/13.0 cm/sec. Prox ICA 60.2/13.2 cm/sec. Prox ICA 59.2/16.2 cm/sec. Mid ICA 94.1/24.1 cm/sec. Mid ICA 73.9/19.9 cm/sec. Dist ICA 121.6/23.0 cm/sec. Dist ICA 89.1/24.1 cm/sec. Rt. ICA/CCA = 1.7. Lt. ICA/CCA = 89.1/76.9=1.2. Prox ECA 97.7/9.3 cm/sec. Prox ECA 62.9/9.0 cm/sec. Rt. Vert. 33.9/6.1 cm/sec. Lt. Vert. 100.2/20.4 cm/sec. Right Extracranial There is homogeneous, smooth atherosclerotic plaque noted in the right common carotid artery. There is heterogeneous, irregular atherosclerotic plaque noted in the right internal carotid artery. There is heterogeneous, irregular atherosclerotic plaque noted in the right external carotid artery. Antegrade flow is noted in the right vertebral artery. Left Extracranial There is homogeneous, smooth atherosclerotic plaque noted in the left common carotid artery. There is heterogeneous, irregular atherosclerotic plaque noted in the left internal carotid artery. There is no significant atherosclerotic plaque noted in the left external carotid artery. Antegrade flow is noted in the left vertebral artery. Procedure Carotid Duplex 40312. This is a Carotid Duplex examination using B-mode, color flow and specral Doppler. Exam performed in department. VL/Carotid Duplex Ultrasound Interpretation Summary Mild (<50%) stenosis right extracranial internal carotid. Mild (<50%) stenosis left extracranial internal carotid. Patent and antegrade vertebrals bilaterally. Ordering Physician: Que Langston Referring Physician: [facility] Performed By: Gloria Carreon, JAMI, RVT
== END | disposition home or self-care (01) ==
LOC: CVS 10:02
PROVIDERS: Referring Provider Student in an Organized Health Care Education/Training Program; Visit Provider Student in an Organized Health Care Education/Training Program
DX: R42 Dizziness and giddiness (principal); I70.90 Unspecified atherosclerosis
CPT/HCPCS: 93880

== ENCOUNTER → 2025-05-10 | Outpatient (CLI) | payer OTHER, SELFPAY ==
--- NOTE | 2025-05-10 12:18 | MRI_ITS ---
PROCEDURE: MRA NECK WITH AND W/O CONTRAST; MRA HEAD ONLY WITHOUT CONTRAST 05/10/2025 REASON FOR EXAM: GIDDINESS AND DIZZINESS TECHNIQUE: Procedure Code: [id number]; MRIMRAH Modality: MR Procedure: MRA NECK WITH AND W/O CONTRAST; MRA HEAD ONLY WITHOUT CONTRAST Neck MRA using 2D and 3D Time of Flight technique and with intravenous gadolinium-based contrast. CONTRAST: VOLUME: mL FINDINGS: HEAD: The intracranial segments of the bilateral ICAs appear unremarkable. The bilateral ACAs appear unremarkable. The anterior communicating artery is patent. The bilateral MCAs appear unremarkable. The intracranial segments of the bilateral vertebral arteries (V4) appear unremarkable. The basilar artery is unremarkable. The bilateral aircraft refueler are unremarkable. NECK: Motion artifact severely limits evaluation. The bilateral common carotid arteries appear unremarkable bilaterally. Signal abnormality within the bilateral carotid bulbs on the axial sequences likely represent flow-related artifact. The cervical segments of the bilateral ICAs are markedly tortuous. Signal abnormality and poor visualization of a segment of the cervical segment of the right ICA on the axial sequences likely represents flow- related artifact. The cervical segment of the left ICA appears unremarkable. The cervical segments of the bilateral vertebral arteries appear unremarkable. MRI/MRA Neck WITH and W/O Contrast IMPRESSION: No hemodynamically significant stenosis, major vessel occlusion/dissection, or aneurysm greater than 5 millimeters. If warranted, further evaluation with a CTA can be obtained. Reading Location: [id number]
--- NOTE | 2025-05-10 12:18 | MRI_ITS ---
PROCEDURE: BRAIN W/WO CONTRAST 05/10/2025 REASON FOR EXAM: GIDDINESS AND DIZZINESS TECHNIQUE: Procedure Code: [id number] Modality: MR Procedure: BRAIN W/WO CONTRAST Multiplanar and multisequence images were obtained. CONTRAST: VOLUME: mL FINDINGS: Moderate confluence and focal FLAIR hyperintensities throughout the bilateral cerebral white matter are nonspecific but likely represent chronic microvascular ischemic changes. No corresponding enhancement. Mild generalized atrophy. Otherwise the brain parenchyma appears unremarkable. The frausto-white matter differentiation is appropriate. No midline shift. The midline structures are intact, specifically the corpus callosum, septum pellucidum, pituitary gland, and cerebellar vermis. The cervicomedullary junction appears unremarkable. The paranasal sinuses and mastoid air cells are clear. Evidence of bilateral cataract surgery. Diffusion-weighted images demonstrate no restricted diffusion. No abnormal enhancement pattern. MRI/Brain W/WO Contrast IMPRESSION: Moderate nonspecific, nonenhancing FLAIR hyperintensities throughout the bilate ral cerebral white matter, likely representing chronic microvascular ischemic changes. Mild generalized atrophy. Reading Location: [id number]
--- NOTE | 2025-05-10 12:18 | MRI_ITS ---
PROCEDURE: MRA NECK WITH AND W/O CONTRAST; MRA HEAD ONLY WITHOUT CONTRAST 05/10/2025 REASON FOR EXAM: GIDDINESS AND DIZZINESS TECHNIQUE: Procedure Code: [id number]; MRIMRAH Modality: MR Procedure: MRA NECK WITH AND W/O CONTRAST; MRA HEAD ONLY WITHOUT CONTRAST Neck MRA using 2D and 3D Time of Flight technique and with intravenous gadolinium-based contrast. CONTRAST: VOLUME: mL FINDINGS: HEAD: The intracranial segments of the bilateral ICAs appear unremarkable. The bilateral ACAs appear unremarkable. The anterior communicating artery is patent. The bilateral MCAs appear unremarkable. The intracranial segments of the bilateral vertebral arteries (V4) appear unremarkable. The basilar artery is unremarkable. The bilateral carpenter/labor are unremarkable. NECK: Motion artifact severely limits evaluation. The bilateral common carotid arteries appear unremarkable bilaterally. Signal abnormality within the bilateral carotid bulbs on the axial sequences likely represent flow-related artifact. The cervical segments of the bilateral ICAs are markedly tortuous. Signal abnormality and poor visualization of a segment of the cervical segment of the right ICA on the axial sequences likely represents flow- related artifact. The cervical segment of the left ICA appears unremarkable. The cervical segments of the bilateral vertebral arteries appear unremarkable. MRI/MRA Head ONLY without Contrast IMPRESSION: No hemodynamically significant stenosis, major vessel occlusion/dissection, or aneurysm greater than 5 millimeters. If warranted, further evaluation with a CTA can be obtained. Reading Location: [id number]
== END | disposition home or self-care (01) ==
DX: R42 Dizziness and giddiness (principal)
CPT/HCPCS: 70544; 70549; 70553; A9575; A4216